=== PATIENT | male | born 1960 | race Caucasian/White ===

== ENCOUNTER 2020-07-21 12:13 | Inpatient (IN) ==
[2020-07-21] MEDS ORDERED: SODIUM CHLORIDE 0.9% 500 ML IV SCH (12:30)
[2020-07-21 13:03] LABS: Basophils # (auto) 0.01 K/uL (0-0.2); Basophils % (auto) 0.1 %; Eosinophils # (auto) 0.01 K/uL (0-0.5); Eosinophils % (auto) 0.1 %; Hematocrit (blood only) 43.8 % (42-52); Hemoglobin 15.4 g/dL (14.0-18.0); Immature Granulocytes % (auto) 1.3 %; Lymphocytes # (auto) 1.01 K/uL (1.2-3.4); Lymphocytes % (auto) 13.3 %; Mean Corpuscular Hemoglobin 31.4 pg (25-34); Mean Corpuscular Hgb Conc 35.2 g/dL (32-36); Mean Corpuscular Volume 89.4 fL (80-100); Mean Platelet Volume 10.9 fL (7.4-10.4); Monocytes # (auto) 1.02 K/uL (0.11-0.59); Monocytes % (auto) 13.5 %; Neutrophils # (auto) 5.43 K/uL (1.4-6.5); Neutrophils % (auto) 71.7 %; Platelet Count 281 K/uL (130-400); RDW Coefficient of Variation 13.1 % (11.5-14.5); RDW Standard Deviation 43.1 fL (36.4-46.3); White Blood Count 7.58 K/uL (4.8-10.8)
[2020-07-21 13:12] LABS: INR 1.1 (0.9-1.1); Prothrombin Time 11.6 Seconds (9.0-12.0)
[2020-07-21 13:14] LABS: D Dimer 620 ug/L FEU (0-500)
--- NOTE | 2020-07-21 13:15 | XRay Report ---
XR chest 1V portable CLINICAL HISTORY: Shortness of breath COMPARISON STUDY: No previous studies for comparison. FINDINGS: The heart is mildly enlarged. There is no failure. There are old left-sided rib fractures. There is no pneumothorax. There are nonspecific bilateral nodular opacities, statistically infectious /inflammatory. Clinical and radiographic follow-up is recommended. No pleural effusions are visualize d[ IMPRESSION: Nonspecific ill-defined bilateral nodular opacities, statistically infectious/inflammator y. Clinical and radiographic follow-up is recommended ACT 112: Negative or not required by law. Electronically signed by: Kyle Dye M.D. 07/21/2020 1:14 PM
[2020-07-21 13:25] LABS: Alanine Aminotransferase 45 U/L (12-78); Aspartate Aminotransferase 43 U/L (15-37); BUN Creatinine Ratio 7.7 (10-20); Blood Urea Nitrogen 7 mg/dl (7-18); Calcium 9.1 mg/dl (8.5-10.1); Carbon Dioxide 25 mmol/L (21-32); Chloride 100 mmol/L (98-107); Creatinine Clr Calc Pharmacy 112.2 ml/min; Est GFR (Non-African American) 87.2; Glucose 144 mg/dl (70-99); Lipase 103 U/L (73-393); Magnesium 2.2 mg/dl (1.8-2.4); Potassium 3.3 mmol/L (3.5-5.1); Sodium 136 mmol/L (136-145)
[2020-07-21 13:35] LABS: Albumin Globulin Ratio 0.7 (0.9-2); Alkaline Phosphatase 79 U/L (45-117); Bilirubin,Total 0.9 mg/dl (0.2-1); Globulin 4.6 gm/dl (2.5-4.0); Thyroid Stimulating Hormone 0.805 uIu/ml (0.300-4.500); Total Protein 7.6 gm/dl (6.4-8.2); Troponin I < 0.015 ng/ml (0-0.045)
[2020-07-21] MEDS ORDERED: POTASSIUM CHLORIDE CRTAB 20 MEQ TABCR PO STA (13:42)
[2020-07-21] MEDS ORDERED: POTASSIUM CHLORIDE / WTR 10 MEQ/100 ML PLCT IV ONE (13:42)
--- NOTE | 2020-07-21 13:42 | Emergency Department Note ---
Impression & Plan COVID-19, A-fib, Hypokalemia ED Provider Note Provider: Aleksandar Mcgill MD DATE OF SERVICE:07/21/2020 CHIEF COMPLAINT: Shortness of breath, palpitations HISTORY OF PRESENT ILLNESS: Patient is a 60-year-old gentleman history of palpitations presenting here today via ambulance from home. Patient states he tested positive for Covid on July 09 and has been convalescing at home. Patient states headaches resolved with breathing or less of days has worsened significantly. His is also sick at home. Patient denies chest pain but states he been having palpitations now extremely short of breath. States he has a somewhat productive cough with some brown sputum. Denies significant headache or myalgias at this time. Denies abdominal pain. Patient states he took some Tylenol early this morning. Denies trauma. Denies syncope. Denies pain at this time. Shortness of breath worse with exertion. REVIEW OF SYSTEMS: A total of 10 review of systems was obtained and negative except as stated above in the HPI. PAST MEDICAL HISTORY: As noted above and later states intermittent A. fib MEDICATIONS: Metoprolol patient taking as needed for palpitations SOCIAL HISTORY: Distant former smoker, lives at home with PHYSICAL EXAM: GENERAL: alert and oriented in no acute distress on stretcher Head: normocephalic and atraumatic EYES: No injection, discharge or icterus. NECK: Trachea midline. Supple. LUNGS: Airway patent. Some mild increased work of breathing but not signi ficantly tachypneic. HEART: Irregularly irregular rate and rhythm. No chest wall tenderness ABDOMEN: Soft and non-tender, without guarding or rebound. SKIN: Acyanotic, warm, dry, without rashes EXTREMITIES: Without swelling, tenderness or deformity NEUROLOGICAL: No focal deficits. No aphasia. No facial droop or slurred speech. EK bpm atrial fibrillation with rapid ventricular response and PVCs noted. No acute ST segment elevation is noted. No priors available. Normal QRS duration. CONTINUOUS CARDIAC MONITORING: was ordered and showed a heart rate of 90's bpm in atrial fibrillation predominantly rate controlled Patient's laboratory studies and imaging reviewed. Differential includes Viral syndrome, otitis, pharyngitis, pneumonia, influenza, meningitis, urinary tract infection, sepsis, bacteremia, as well as other pathologies. IMPRESSION/MEDICAL DECISION MAKIN-year-old gentleman to number cautions with a known Covid positive status now with some worsening shortness of breath. Not significantly hypoxic on room air but having work of breathing. D-dimer is positive and will be sent for CT scan of the chest to exclude PE. EKG shows atrial fibrillation on further questioning the patient reports he does have a paroxysmal history of this and is only on aspirin. Will need to be empirically anticoagulated. Patient is predominately rate controlled here not requiring significant rate control medication such as beta-jasmeet or calcium channel jasmeet. Mild hypokalemia is noted. Given an IV potassium supplement as well as oral potassium supplementation. No significant cytosis or anemia likely. No evidence of hepatitis or pancreatitis. TSH within normal limits. Chest x-ray is consistent with nonspecific interstitial changes that coincide with his history of coronavirus infection. Given the A. fib currently that he seems persistently and did give a dose of Lovenox 1mg/kg for AC at this time. CT will evaluate for possible PE but I doubt dissection given his lack of pain at this time. CTA without signs of PE but ground glass findings consistent with COVID. Patient's feeling improved after some IV hydration and slight oxygen therapy here for comfort. Will discuss with the hospitalist further inpatient care at this time. DIAGNOSIS: COVID-19, shortness of breath, atrial fibrillation DISPOSITION: Hospitalist will evaluate Patient was agreeable with this plan. Past Med/Surg History Social History Smoking Status: Former smoker Feels Safe at Home: Yes Allergies Allergies Allergy/AdvReac Type Severity Reaction Status Date / Time No Known Allergies Allergy Unverified 07/21/20 13:04 Home Meds Home Medications Medication Instructions Recorded Confirmed metoprolol succinate 25 mg PO DAILY 07/21/20 07/21/20 Results & Data (ED) Vital Signs Vital Signs - 24 hr 07/21/20 12:22 07/21/20 14:38 Temperature 37.2 C Temperature Source Oral Pulse Rate 92 H Pulse Rate [Left Finger] 92 H Respiratory Rate 18 16 Respiratory Effort / Characteristics Non-Labored Spontaneous Respiratory Depth Normal Respiratory Pattern Regular Blood Pressure 142/86 H Blood Pressure [Left Arm] 111/72 Blood Pressure Mean 104 Blood Pressure Mean [Left Arm] 85 Blood Pressure Position Sitting Pulse Oximetry 93 97 Oxygen Delivery Method Room Air Nasal Cannula Oxygen Flow Rate 2 Sepsis Recent Fever Within 48 Hours Yes Sepsis New/Unexplained Change in Mental Status N/A Sepsis Action Taken by Nursing No Action Required Laboratory Data Result diagrams: 07/21/20 12:45 07/21/20 12:45 Lab Results 07/21/20 07/21/20 07/21/20 Range/Units 12:45 12:45 12:45 WBC 7.58 (4.8-10.8) K/uL RBC 4.90 (4.7-6.1) M/uL Hgb 15.4 (14.0-18.0) g/dL Hct 43.8 (42-52) % MCV 89.4 (80-100) fL MCH 31.4 (25-34) pg MCHC 35.2 (32-36) g/dL RDW Std Deviation 43.1 (36.4-46.3) fL RDW Coeff of Johana 13.1 (11.5-14.5) % Plt Count 281 (130-400) K/uL MPV 10.9 H (7.4-10.4) fL Immature Gran % (Auto) 1.3 % Neut % (Auto) 71.7 % Lymph % (Auto) 13.3 % [place] % (Auto) 13.5 % Eos % (Auto) 0.1 % Baso % (Auto) 0.1 % Neut # (Auto) 5.43 (1.4-6.5) K/uL Lymph # (Auto) 1.01 L (1.2-3.4) K/uL [place] # (Auto) 1.02 H (0.11-0.59) K/uL Eos # (Auto) 0.01 (0-0.5) K/uL Baso # (Auto) 0.01 (0-0.2) K/uL Immature Gran # (Auto) 0.10 H (0.00-0.02) K/uL PT 11.6 (9.0-12.0) Seconds INR 1.1 (0.9-1.1) D-Dimer 620 H* (0-500) ug/L FEU Sodium 136 (136-145) mmol/L Potassium 3.3 L (3.5-5.1) mmol/L Chloride 100 (98-107) mmol/L Carbon Dioxide 25 (21-32) mmol/L Anion Gap 11.0 (3-11) BUN 7 (7-18) mg/dl Creatinine 0.94 (0.6-1.4) mg/dl Est Cr Clr Drug Dosing 112.2 ml/min Est GFR ( Amer) 101.0 Est GFR (Non-Af Amer) 87.2 BUN/Creatinine Ratio 7.7 L (10-20) Glucose 144 H (70-99) mg/dl Lactate (0.4-2.0) mmol/L Calcium 9.1 (8.5-10.1) mg/dl Magnesium 2.2 (1.8-2.4) mg/dl Total Bilirubin 0.9 (0.2-1) mg/dl AST 43 H (15-37) U/L ALT 45 (12-78) U/L Alkaline Phosphatase 79 (45-117) U/L Troponin I < 0.015 (0-0.045) ng/ml Total Protein 7.6 (6.4-8.2) gm/dl Albumin 3.0 L (3.4-5.0) gm/dl Globulin 4.6 H (2.5-4.0) gm/dl Albumin/Globulin Ratio 0.7 L (0.9-2) Lipase 103 (73-393) U/L Procalcitonin (0-0.5) ng/ml TSH 0.805 (0.300-4.500) uIu/ml 07/21/20 07/21/20 Range/Units 12:45 13:05 WBC (4.8-10.8) K/uL RBC (4.7-6.1) M/uL Hgb (14.0-18.0) g/dL Hct (42-52) % MCV (80-100) fL MCH (25-34) pg MCHC (32-36) g/dL RDW Std Deviation (36.4-46.3) fL RDW Coeff of Johana (11.5-14.5) % Plt Count (130-400) K/uL MPV (7.4-10.4) fL Immature Gran % (Auto) % Neut % (Auto) % Lymph % (Auto) % [place] % (Auto) % Eos % (Auto) % Baso % (Auto) % Neut # (Auto) (1.4-6.5) K/uL Lymph # (Auto) (1.2-3.4) K/uL [place] # (Auto) (0.11-0.59) K/uL Eos # (Auto) (0-0.5) K/uL Baso # (Auto) (0-0.2) K/uL Immature Gran # (Auto) (0.00-0.02) K/uL PT (9.0-12.0) Seconds INR (0.9-1.1) D-Dimer (0-500) ug/L FEU Sodium (136-145) mmol/L Potassium (3.5-5.1) mmol/L Chloride (98-107) mmol/L Carbon Dioxide (21-32) mmol/L Anion Gap (3-11) BUN (7-18) mg/dl Creatinine (0.6-1.4) mg/dl Est Cr Clr Drug Dosing ml/min Est GFR ( Amer) Est GFR (Non-Af Amer) BUN/Creatinine Ratio (10-20) Glucose (70-99) mg/dl Lactate 1.6 (0.4-2.0) mmol/L Calcium (8.5-10.1) mg/dl Magnesium (1.8-2.4) mg/dl Total Bilirubin (0.2-1) mg/dl AST (15-37) U/L ALT (12-78) U/L Alkaline Phosphatase (45-117) U/L Troponin I (0-0.045) ng/ml Total Protein (6.4-8.2) gm/dl Albumin (3.4-5.0) gm/dl Globulin (2.5-4.0) gm/dl Albumin/Globulin Ratio (0.9-2) Lipase (73-393) U/L Procalcitonin < 0.05 (0-0.5) ng/ml TSH (0.300-4.500) uIu/ml Administered Medications Discontinued Medications Sodium Chloride (Nss) 500 mls @ 999 mls/hr IV .Q31M BRAD Stop: 07/21/20 13:00 Last Admin: 07/21/20 12:44 Dose: 999 mls/hr Documented by: [id number] Ioversol (Optiray 320 125ml) 120 ml IV ONCE ONE Stop: 07/21/20 14:47 Last Admin: 07/21/20 14:46 Dose: 120 ml Documented by: [id number] Discharge Plan Visit Data Chief Complaint: Shortness of Breath/Dyspnea Stated Complaint: sob/ covid pos. ED Provider: Aleksandar Mcgill Discharge Problem: COVID-19, A-fib, Hypokalemia Forms Stand Alone Forms: [facility] [place] [employer] Prescriptions Prescriptions: No Action metoprolol succinate 25 mg Tablet Extended Release 24 Hr 25 mg PO DAILY RF: 0 Discharge Problem: A-fib Qualifiers: Atrial fibrillation type: unspecified Qualified Code(s): I48.91 - Unspecified atrial fibrillation
[2020-07-21] MEDS ORDERED: ENOXAPARIN 1 MG/KG SQ ONE (13:59)
[2020-07-21] MEDS ORDERED: ENOXAPARIN INJ 120 MG/0.8 ML SYR SQ STA (14:11)
[2020-07-21] MEDS ORDERED: OPTIRAY 320 125ml IV ONE (14:46)
--- NOTE | 2020-07-21 15:01 | CT Scan Report ---
CT ANGIOGRAM OF THE CHEST CLINICAL HISTORY: Shortness of breath. Possible pulmonary embolism. Abnormal chest x-ray,, +COVID,+di elisha COMPARISON STUDY: Chest x-ray dated 07/21/2020 TECHNIQUE: Following the IV administration of 120 mL of Optiray-320, CT angiogram of the thorax was p erformed from the thoracic inlet to the lung bases utilizing the pulmonary embolus protocol. Images a re reviewed in the axial, sagittal, and coronal planes. IV contrast was administered without complica tion. MIP imaging was performed. A dose lowering technique was utilized adhering to the principles o f ALARA. CT DOSE: 681.57 mGy.cm FINDINGS: There are borderline enlarged right hilar lymph nodes. There is no pathologic mediastinal lymphadenop athy. There was no evidence of thoracic aortic dilatation. There were no pulmonary artery filling defects to indicate acute pulmonary embolism. There are trace bilateral pleural effusions There are multifocal bilateral groundglass pulmonary opacities with a peripheral distribution. The fi ndings are consistent with a bilateral pneumonia. IMPRESSION: 1. No evidence of acute pulmonary embolism 2. Multifocal bilateral groundglass pulmonary opacities with a peripheral distribution. The findings are indicative of a bilateral pneumonitis, likely viral. ACT 112: Negative or not required by law. Electronically signed by: Kyle Dye M.D. 07/21/2020 3:00 PM
[2020-07-21 15:31] LABS: Appearance Urine Clear (Clear); Bilirubin Urine Negative (Negative); Blood Urine Negative (Negative); Color Urine Yellow; Glucose Urine UA Negative (Negative); Ketones Urine 2+ (Negative); Leukocyte Esterase Urine Negative (Negative); Nitrite Urine Negative (Negative); Protein Urine Negative (Negative); Specific Gravity Urine 1.022 (1.000-1.030); Urobilinogen Urine Negative (Negative)
--- NOTE | 2020-07-21 16:28 | History & Physical Report ---
Date of Service July 21, 2020 Assessment & Plan (1) SOB (shortness of breath) on exertion: (2) COVID-19: Present on admission with worsening SOB with minimal exertion associated with palpitation Was testing positive for COVID 19 on 07/09, but SOB worsening in the last few days CTA chest showed no evidence of acute pulmonary embolism. Multifocal bilateral groundglass pulmonary opacities with a peripheral distribution. Case discussed with pulmonology Dr. Brice, no indication for Remdesivir since symptoms has been going for more than [address] Brice agreed to start on dexamethasone 6mg daily since SOB worsening with oxygen sat dropped in the 93 and required 2L NC of oxygen on admission CT reviewed with storage garage attendant and suggested the CT finding is due to COVID 19 and recommended to hold on antibiotic Procalcitonin normal and no leukocytosis, but if pt develops any fever will start on antibiotic Continue oxygen supplement consider official pulm consult if symptoms worsening Blood cx collected in the ER pending Continue isolation (3) A-fib: Feels SOB associated with palpitation History of paroxysmal A. fib EKG on admission showed A. fib with HR 110 Pt is on Metoprolol but only takes metoprolol when he has symptom Will resume metoprolol 25mg succinate Take aspirin on and off Will get an echo in am Received Lovenox therapeutic in the ER, Will continue for now Cardiology consult Continue monitor closely (4) Hypokalemia: Mostly related to poor intake Potassium on admission 3.3 K replaced Will monitor BMP DM type 2 last Hba1c 6.8 on 08/02 Not on any diabetic medication Will check Hba1c Will start on novolog sliding scale during the hospital course Continue monitor BS while on steroid Elevated Ddimer Mostly due to COVID 19 CTA chest showed no evidence for PE DVT px on Lovenox therapeutic dose for P. Afib Code status full code Disposition Will discharge once medically stable History of Present Illness Chief Complaint: Worsening SOB Primary Care Provider: Moustapha Wall MD male60 years old type 2 diabetes with past medical history of paroxysmal A. fib, with worsening shortness of breath presented to the ER. Patient said on July 10 he was tested positive for Covid 19. He said his shortness of breath has been getting worse because with little exertion he runs out of breath and gets tired. He said that he has been having productive cough with brown sputum. He said last week he had diarrhea,and fever that resolved now. He said that he vomited once last week. He said he has not been eating in the past 2 weeks and felt very weak. Today his breathing felt worse associated with palpitation. Last time he was in A. fib was about 5 months ago. He is on metoprolol but only takes it unless he has symptoms. He takes baby aspirin on and off. Currently he said he felt much better with the oxygen supplement. Denies any chest pain, palpitation, dizziness, nausea. Lab done in the ER showed elevated of D-dimer. CTA chest was negative for PE. Lovenox was given for the A. fib. Allergies Allergy/AdvReac Type Severity Reaction Status Date / Time No Known Allergies Allergy Unverified 07/21/20 13:04 Home Medications Home Medications Medication Instructions Recorded Confirmed Type aspirin 81 mg PO DAILY 07/21/20 07/21/20 History metoprolol succinate 25 mg PO DAILY 07/21/20 07/21/20 History Past Med/Surg History Social History Smoking Status: Former smoker Second Hand Exposure: No; Do You Dip or Chew Tobacco: No; Tobacco Cessation Education Requested by Patient: No Hx Alcohol Use: Yes Alcohol type: beer and hard liquor Hx Substance Use: No Preferred Language: Lithuanian 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 Beliefs That Will Affect Care: None Current Living Situation: Spouse Other Information That Helps Us Care for You: No Feels Safe at Home: Yes Safety Concerns: Feels Safe At This Time Assistive Devices: Glasses Review of Systems Review of Systems: All systems reviewed & are unremarkable except as noted in HPI & below Physical Exam Physical Exam: General- No acute distress Head- atraumatic Eyes- PERRL, EOMI, ENT- oropharynx clear Neck- supple, no JVD Lungs- No wheezing or crackles Heart- irregular rhythm; no murmur Abdomen- normal bowel sounds, soft, nontender Extremities- no calf tenderness Neuro- alert, oriented x 3; PERRL, EOMI; no facial palsy; no dysarthria Skin- warm & dry Results & Data Results & Data ([facility]) Vital Signs (Past 12 Hours) Vital Signs Temp Pulse Pulse Resp BP BP Pulse Ox 07/21/20 16:11 89 16 114/69 96 07/21/20 14:38 92 H 16 111/72 97 07/21/20 12:22 37.2 C 92 H 18 142/[address] ANGIOGRAM OF THE CHEST CLINICAL HISTORY: Shortness of breath. Possible pulmonary embolism. Abnormal chest x-ray,, +COVID,+dimer COMPARISON STUDY: Chest x-ray dated 07/21/2020 TECHNIQUE: Following the IV administration of 120 mL of Optiray-320, CT angiogram of the thorax was performed from the thoracic inlet to the lung bases utilizing the pulmonary embolus protocol. Images are reviewed in the axial, sagittal, and coronal planes. IV contrast was administered without complication. MIP imaging was performed. A dose lowering technique was utilized adhering to the principles of ALARA. CT DOSE: 681.57 mGy.cm FINDINGS: There are borderline enlarged right hilar lymph nodes. There is no pathologic mediastinal lymphadenopathy. There was no evidence of thoracic aortic dilatation. There were no pulmonary artery filling defects to indicate acute pulmonary embolism. There are trace bilateral pleural effusions There are multifocal bilateral groundglass pulmonary opacities with a peripheral distribution. The findings are consistent with a bilateral pneumonia. IMPRESSION: 1. No evidence of acute pulmonary embolism 2. Multifocal bilateral groundglass pulmonary opacities with a peripheral distribution. The findings are indicative of a bilateral pneumonitis, likely viral. ACT 112: Negative or not required by law. Electronically signed by: Kyle Dye M.D. 07/21/2020 3:00 PM Dictated: 07/21/201453Transcribed: 07/21/201453 [facility], [id number] XRay Report Patient: YVETTE YEPEZ Date: 07/21/20#: [id number]: [address]Acct ID:[id number]: Date: 1960[facility] [address] Zip: [place],Age: 60Location: EDSex: MRoom/Bed:Att Phy:Diagnosis: sob/ covid pos.Veronica P hy: PCP,NOService Date: 07/21/20Fam Phy:Interpreting Phy: Kyle Dye MDAdmit Phy: Ordering Phy: Aleksandar Mcgill M.D. cc: ~ XR chest 1V portable CLINICAL HISTORY: Shortness of breath COMPARISON STUDY: No previous studies for comparison. FINDINGS: The heart is mildly enlarged. There is no failure. There are old left- sided rib fractures. There is no pneumothorax. There are nonspecific bilateral nodular opacities, statistically infectious/inflammatory. Clinical and radiographic follow-up is recommended. No pleural effusions are visualized[ IMPRESSION: Nonspecific ill-defined bilateral nodular opacities, statistically infectious/inflammatory. Clinical and radiographic follow-up is recommended ACT 112: Negative or not required by law. Electronically signed by: Kyle Dye M.D. 07/21/2020 1:14 PM Dictated: 07/21/20 1312Transcribed: 07/21/20 1312 (1) A-fib Atrial fibrillation type: unspecified Qualified Code(s): I48.91 - Unspecified atrial fibrillation
[2020-07-21 16:53] LABS: NT Pro B Type Natriuretic Pept 893 pg/ml (0-900)
[2020-07-21] MEDS ORDERED: IPRATROPIUM BROMIDE/ALBUTEROL respimat INH INH PRN (17:11)
[2020-07-21] MEDS ORDERED: GLUCOSE 10 TABS/TUBE PO PRN (18:00)
[2020-07-21] MEDS ORDERED: ACETAMINOPHEN 325 MG TAB PO PRN (18:00)
[2020-07-21] MEDS ORDERED: CARBOHYDRATES FOR HYPOGLYCEMIA PO PRN (18:00)
[2020-07-21] MEDS ORDERED: GLUCAGON FOR INJ 1 MG VIAL SQ PRN (18:00)
[2020-07-21] MEDS ORDERED: GLUCOSE 40% GEL 15 GM TUBE PO PRN (18:00)
[2020-07-21] MEDS ORDERED: DEXTROSE 50% 50 ML SYRINGE IV PRN (18:00)
[2020-07-21] MEDS ORDERED: ALBUTEROL HFA 8 GM INHALER INH PRN (18:34)
[2020-07-21] MEDS ORDERED: IPRATROPIUM BROMIDE HFA INHALER INH PRN (19:00)
[2020-07-21] MEDS ORDERED: ALBUTEROL HFA 8 GM INHALER INH SCH (19:00)
[2020-07-21] MEDS: dexAMETHasone 4 MG TAB PO SCH (19:27)
[2020-07-21] MEDS: METOPROLOL SUCC 25MG EXT REL TAB PO SCH (19:27)
[2020-07-21] MEDS: guaiFENesin 600 MG TABCR PO SCH (19:27)
[2020-07-21] MEDS: INSULIN ASPART 100 UNITS/ML 3 ML PEN SC SCH (19:55)
[2020-07-21] MEDS ORDERED: ENOXAPARIN 1 MG/KG SC SCH (21:00)
[2020-07-21] MEDS ORDERED: METOPROLOL TARTRATE 1 MG/ML VIAL IV PRN (22:25)
[2020-07-22] MEDS: ENOXAPARIN INJ 120 MG/0.8 ML SYR SQ SCH ×2 (05:36→18:00)
[2020-07-22 05:48] LABS: Hematocrit (blood only) 47.5 % (42-52); Mean Corpuscular Hemoglobin 30.7 pg (25-34); Mean Corpuscular Hgb Conc 33.7 g/dL (32-36); Platelet Count 300 K/uL (130-400); RDW Coefficient of Variation 13.4 % (11.5-14.5); RDW Standard Deviation 44.5 fL (36.4-46.3); Red Blood Count 5.22 M/uL (4.7-6.1); White Blood Count 4.71 K/uL (4.8-10.8)
[2020-07-22 06:15] LABS: Albumin Level 2.8 gm/dl (3.4-5.0); BUN Creatinine Ratio 12.1 (10-20); Calcium 8.6 mg/dl (8.5-10.1); Creatinine Clr Calc Pharmacy 109.8 ml/min; Est GFR (African American) 98.5; Potassium 3.8 mmol/L (3.5-5.1)
[2020-07-22 06:21] LABS: Albumin Globulin Ratio 0.6 (0.9-2); Bilirubin,Total 0.9 mg/dl (0.2-1); C Reactive Protein 7.89 mg/dl (0-0.29); Ferritin 1480.3 ng/ml (8-388); Globulin 4.6 gm/dl (2.5-4.0); Total Protein 7.4 gm/dl (6.4-8.2)
[2020-07-22 06:35] LABS: D Dimer 430 ug/L FEU (0-500)
[2020-07-22] MEDS: dexAMETHasone 4 MG TAB PO SCH (09:15)
[2020-07-22] MEDS: guaiFENesin 600 MG TABCR PO SCH ×2 (09:15→20:48)
[2020-07-22] MEDS: METOPROLOL SUCC 25MG EXT REL TAB PO SCH (09:15)
[2020-07-22] MEDS: INSULIN ASPART 100 UNITS/ML 3 ML PEN SC SCH ×4 (09:27→20:39)
--- NOTE | 2020-07-22 10:34 | Cardiology Consultation ---
Date of Consultation July 22, 2020 Assessment & Plan (1) COVID-19: (2) A-fib: As mentioned below, the patient converted spontaneously to normal sinus rhythm this morning. At this point I would continue metoprolol and anticoagulation with Lovenox. Echocardiogram was ordered and will be completed this morning. History of Present Illness Attending Physician: Deepti Chandler DO History of Present Illness This is a 60-year-old male patient admitted with COVID-19. This is a chart review consult to limit exposure. The patient has a history of paroxysmal atr ial fibrillation treated with as needed metoprolol and aspirin. Upon admission he was admitted with atrial fibrillation and this morning converted spontaneously to normal sinus rhythm. Allergies Allergy/AdvReac Type Severity Reaction Status Date / Time No Known Allergies Allergy Unverified 07/21/20 13:04 Home Medications Home Medications Medication Instructions Recorded Confirmed Type aspirin 81 mg PO DAILY 07/21/20 07/21/20 History metoprolol succinate 25 mg PO DAILY 07/21/20 07/21/20 History Patient History Social History Smoking Status: Former smoker Second Hand Exposure: No; Do You Dip or Chew Tobacco: No; Tobacco Cessation Education Requested by Patient: No Hx Alcohol Use: Yes Alcohol type: beer and hard liquor Hx Substance Use: No Preferred Language: Stateless Dog Boarder Required: No Beliefs That Will Affect Care: None Current Living Situation: Spouse Other Information That Helps Us Care for You: No Feels Safe at Home: Yes Safety Concerns: Feels Safe At This Time Assistive Devices: Oxygen - Continuous Review of Systems Review of Systems: All systems reviewed & are unremarkable except as noted in HPI & below Nothing additional to add Physical Exam Physical Exam: Not completed as the patient is Covid 19+ Results & Data ([facility]) Vital Signs (Past 12 Hours) Vital Signs Temp Pulse Pulse Resp BP Pulse Ox 07/22/20 08:19 36.5 C 88 20 130/74 95 07/22/20 07:42 96 H 07/22/20 03:30 36.8 C 87 18 137/79 95 07/22/20 00:23 37.1 C 90 18 123/73 94 Laboratory Results Laboratory Results - last 24 hr 07/21/20 07/21/20 07/21/20 12:45 12:45 12:45 WBC 7.58 RBC 4.90 Hgb 15.4 Hct 43.8 MCV 89.4 MCH 31.4 MCHC 35.2 RDW Std Deviation 43.1 RDW Coeff of Johana 13.1 Plt Count 281 MPV 10.9 H Immature Gran % (Auto) 1.3 Neut % (Auto) 71.7 Lymph % (Auto) 13.3 [place] % (Auto) 13.5 Eos % (Auto) 0.1 Baso % (Auto) 0.1 Neut # (Auto) 5.43 Lymph # (Auto) 1.01 L [place] # (Auto) 1.02 H Eos # (Auto) 0.01 Baso # (Auto) 0.01 Immature Gran # (Auto) 0.10 H ESR PT 11.6 INR 1.1 D-Dimer 620 H* Sodium 136 Potassium 3.3 L Chloride 100 Carbon Dioxide 25 Anion Gap 11.0 BUN 7 Creatinine 0.94 Est Cr Clr Drug Dosing 112.2 Est GFR ( Amer) 101.0 Est GFR (Non-Af Amer) 87.2 BUN/Creatinine Ratio 7.7 L Glucose 144 H POC Glucose Estimat Average Glucose Hemoglobin A1c Lactate Calcium 9.1 Magnesium 2.2 Ferritin Total Bilirubin 0.9 AST 43 H ALT 45 Alkaline Phosphatase 79 Troponin I < 0.015 C-Reactive Protein NT-Pro-B Natriuret Pep 893 Total Protein 7.6 Albumin 3.0 L Globulin 4.6 H Albumin/Globulin Ratio 0.7 L Lipase 103 Procalcitonin TSH 0.805 Urine Color Urine Appearance Urine pH Ur Specific [place] Urine Protein Urine Glucose (UA) Urine Ketones Urine Blood Urine Nitrite Urine Bilirubin Urine Urobilinogen Ur Leukocyte Esterase 07/21/20 07/21/20 07/21/20 12:45 13:05 15:00 WBC RBC Hgb Hct MCV MCH MCHC RDW Std Deviation RDW Coeff of [place]ana Plt Count MPV Immature Gran % (Auto) Neut % (Auto) Lymph % (Auto) [place] % (Auto) Eos % (Auto) Baso % (Auto) Neut # (Auto) Lymph # (Auto) [place] # (Auto) Eos # (Auto) Baso # (Auto) Immature Gran # (Auto) ESR PT INR D-Dimer Sodium Potassium Chloride Carbon Dioxide Anion Gap BUN Creatinine Est Cr Clr Drug Dosing Est GFR ( Amer) Est GFR (Non-Af Amer) BUN/Creatinine Ratio Glucose POC Glucose Estimat Average Glucose Hemoglobin A1c Lactate 1.6 Calcium Magnesium Ferritin Total Bilirubin AST ALT Alkaline Phosphatase Troponin I C-Reactive Protein NT-Pro-B Natriuret Pep Total Protein Albumin Globulin Albumin/Globulin Ratio Lipase Procalcitonin < 0.05 TSH Urine Color Yellow Urine Appearance Clear Urine pH 7.0 Ur Specific [place] 1.022 Urine Protein Negative Urine Glucose (UA) Negative Urine Ketones 2+ H Urine Blood Negative Urine Nitrite Negative Urine Bilirubin Negative Urine Urobilinogen Negative Ur Leukocyte Esterase Negative 07/21/20 07/22/20 07/22/20 19:23 05:07 05:07 WBC RBC Hgb Hct MCV MCH MCHC RDW Std Deviation RDW Coeff of Johana Plt Count MPV Immature Gran % (Auto) Neut % (Auto) Lymph % (Auto) [place] % (Auto) Eos % (Auto) Baso % (Auto) Neut # (Auto) Lymph # (Auto) [place] # (Auto) Eos # (Auto) Baso # (Auto) Immature Gran # (Auto) ESR PT INR D-Dimer 430 Sodium 138 Potassium 3.8 D Chloride 104 Carbon Dioxide 26 Anion Gap 8.0 BUN 12 D Creatinine 0.96 Est Cr Clr Drug Dosing 109.8 Est GFR ( Amer) 98.5 Est GFR (Non-Af Amer) 85.0 BUN/Creatinine Ratio 12.1 Glucose 200 H POC Glucose 157 H Estimat Average Glucose Hemoglobin A1c Lactate Calcium 8.6 Magnesium Ferritin 1480.3 H Total Bilirubin 0.9 AST 30 ALT 44 Alkaline Phosphatase 80 Troponin I C-Reactive Protein 7.89 H NT-Pro-B Natriuret Pep Total Protein 7.4 Albumin 2.8 L Globulin 4.6 H Albumin/Globulin Ratio 0.6 L Lipase Procalcitonin TSH Urine Color Urine Appearance Urine pH Ur Specific [place] Urine Protein Urine Glucose (UA) Urine Ketones Urine Blood Urine Nitrite Urine Bilirubin Urine Urobilinogen Ur Leukocyte Esterase 07/22/20 07/22/20 07/22/20 05:07 05:07 05:07 WBC 4.71 L RBC 5.22 Hgb 16.0 Hct 47.5 MCV 91.0 MCH 30.7 MCHC 33.7 RDW Std Deviation 44.5 RDW Coeff of [place] 13.4 Plt Count 300 MPV 11.0 H Immature Gran % (Auto) Neut % (Auto) Lymph % (Auto) [place] % (Auto) Eos % (Auto) Baso % (Auto) Neut # (Auto) Lymph # (Auto) [place] # (Auto) Eos # (Auto) Baso # (Auto) Immature Gran # (Auto) ESR 61 H PT INR D-Dimer Sodium Potassium Chloride Carbon Dioxide Anion Gap BUN Creatinine Est Cr Clr Drug Dosing Est GFR ( Amer) Est GFR (Non-Af Amer) BUN/Creatinine Ratio Glucose POC Glucose Estimat Average Glucose Pending Hemoglobin A1c Pending Lactate Calcium Magnesium Ferritin Total Bilirubin AST ALT Alkaline Phosphatase Troponin I C-Reactive Protein NT-Pro-B Natriuret Pep Total Protein Albumin Globulin Albumin/Globulin Ratio Lipase Procalcitonin TSH Urine Color Urine Appearance Urine pH Ur Specific [place] Urine Protein Urine Glucose (UA) Urine Ketones Urine Blood Urine Nitrite Urine Bilirubin Urine Urobilinogen Ur Leukocyte Esterase 07/22/20 08:16 WBC RBC Hgb Hct MCV MCH MCHC RDW Std Deviation RDW Coeff of Johana Plt Count MPV Immature Gran % (Auto) Neut % (Auto) Lymph % (Auto) [place] % (Auto) Eos % (Auto) Baso % (Auto) Neut # (Auto) Lymph # (Auto) [place] # (Auto) Eos # (Auto) Baso # (Auto) Immature Gran # (Auto) ESR PT INR D-Dimer Sodium Potassium Chloride Carbon Dioxide Anion Gap BUN Creatinine Est Cr Clr Drug Dosing Est GFR ( Amer) Est GFR (Non-Af Amer) BUN/Creatinine Ratio Glucose POC Glucose 194 H Estimat Average Glucose Hemoglobin A1c Lactate Calcium Magnesium Ferritin Total Bilirubin AST ALT Alkaline Phosphatase Troponin I C-Reactive Protein NT-Pro-B Natriuret Pep Total Protein Albumin Globulin Albumin/Globulin Ratio Lipase Procalcitonin TSH Urine Color Urine Appearance Urine pH Ur Specific [place] Urine Protein Urine Glucose (UA) Urine Ketones Urine Blood Urine Nitrite Urine Bilirubin Urine Urobilinogen Ur Leukocyte Esterase Medications Administered Current Inpatient Medications Acetaminophen (Acetaminophen 325 Mg Tab) 650 mg PO Q6H PRN PRN Reason: pain/fever Stop: 08/20/20 17:59 Albuterol (Albuterol Hfa 8 Gm Inhaler) 1 puffs INH QIDR PRN PRN Reason: shortness of breath Stop: 08/20/20 18:33 Last Admin: 07/21/20 19:51 Dose: 1 puffs Documented by: Dexamethasone (Dexamethasone 4 Mg Tab) 6 mg PO DAILY BRAD Stop: 08/20/20 18:29 Last Admin: 07/22/20 09:15 Dose: 6 mg Documented by: Dextrose (Dextrose 50% 50 Ml Syringe) 25 - 50 ml IV UD PRN; Protocol PRN Reason: Hypoglycemia Protocol Stop: 08/20/20 17:59 Enoxaparin Sodium (Enoxaparin Inj 120 Mg/0.8 Ml Syr) 120 mg SQ Q12H BRAD Stop: 08/21/20 04:59 Last Admin: 07/22/20 05:36 Dose: 120 mg Documented by: Glucagon (Glucagon For Inj 1 Mg Vial) 1 mg SQ UD PRN; Protocol PRN Reason: Hypoglycemia Protocol Stop: 08/20/20 17:59 Glucose (Glucose 40% Gel 15 Gm Tube) 15 - 30 gm PO UD PRN; Protocol PRN Reason: Hypoglycemia Protocol Stop: 08/20/20 17:59 Glucose (Glucose 10 Tabs/Tube) 4 - 8 tabs PO UD PRN; Protocol PRN Reason: Hypoglycemia Protocol Stop: 08/20/20 17:59 Guaifenesin (Guaifenesin 600 Mg Tabcr) 600 mg PO Q12 BRAD Stop: 08/20/20 20:59 Last Admin: 07/22/20 09:15 Dose: 600 mg Documented by: Influenza Virus Vaccine Quadrival (Influenza Virus Quad Vaccine 0.5 Ml Syr) 0.5 ml IM .ONCE ONE Stop: 07/22/20 16:01 Insulin Aspart (Insulin Aspart 100 Units/Ml 3 Ml Pen) 0 units SC ACHS BRAD Stop: 08/20/20 20:59 Last Admin: 07/22/20 09:27 Dose: 5 units Documented by: Ipratropium [place] (Ipratropium [place] Hfa Inhaler) 1 puffs INH QIDR PRN PRN Reason: shortness of breath Stop: 08/20/20 18:59 Last Admin: 07/21/20 19:52 Dose: 1 puffs Documented by: Metoprolol Succinate (Metoprolol Succ 25mg Ext Rel Tab) 25 mg PO DAILY BRAD Stop: 08/20/20 17:59 Last Admin: 07/22/20 09:15 Dose: 25 mg Documented by: Metoprolol Tartrate (Metoprolol Tartrate 1 Mg/Ml Vial) 2.5 mg IV Q6 PRN PRN Reason: for HR above 120 Stop: 08/21/20 00:00 Miscellaneous (Carbohydrates For Hypoglycemia ) 15 - 30 gm PO UD PRN PRN Reason: Hypoglycemia Protocol Stop: 08/20/20 17:59 (1) A-fib Atrial fibrillation type: unspecified Qualified Code(s): I48.91 - Unspecified atrial fibrillation
--- NOTE | 2020-07-22 12:26 | Electrocardiogram Report ---
Test Reason : Blood Pressure : / mmHG Vent. Rate : 110 BPM Atrial Rate : 119 BPM P-R Int : 000 ms QRS Dur : 084 ms QT Int : 390 ms P-R-T Axes : 000 -05 253 degrees QTc Int : 527 ms Poor data quality, interpretation may be adversely affected Atrial fibrillation with rapid ventricular response with premature ventricular or aberrantly conducte d complexes Nonspecific T wave abnormality consider lateral ischemia Abnormal ECG No previous ECGs available Confirmed by Roland Alegria ([id number]) on 07/22/2020 12:25:51 PM Referred By: REFERRED SELF Confirmed By:Roland Alegria
--- NOTE | 2020-07-22 12:50 | Hospitalist Progress Note ---
Date of Service July 22, 2020 Assessment & Plan (1) COVID-19: Feels somewhat improved today but still short of breath and requiring oxygen Feels feverish with chills Starting remdesivir today--elevated ESR/CRP/ferritin--ordered convalescent plasma Cont daily dexamethasone and supportive care efforts as needed. (2) Paroxysmal atrial fibrillation: has a long history of afib in the past that is intermittent. Uses baby aspirin daily but not on any blood thinners in the past. Now on full dose lovenox. Has seen cardiology and was placed on Toprol, but uses half daily as this causes fatigue. Discussed the possibility of changing strategies in the hospital with current fiberglass technician. For now, the focus is the treatment of his hypoxia 2/2 covid-19 as he has already converted to sinus rhythm. (3) Impaired glucose metabolism: A1C pending but random glucose already >200. On carb coverage and correction factor with Novolog while on dexamethasone. Cont to monitor closely. No basal ordered just yet to avoid unnecessary hypoglycemia. (4) DVT prophylaxis: Lovenox full dose Full Code Dispo-cont med tele. Plan for home when off oxygen. Deepti Chandler DO [facility] Hospitalist Admission and Anticipated Discharge Date Admission Date: July 21, 2020 Subjective reports coughing, recent fevers and chills with worsening SOB on oxygen the patient has been formally diagnosed for at least 1 week and had diarrhea he reports was severe, that he feels has resolved at this point he is tolerating PO he reports a long h/o afib and intolerance of betablockers for severe fatigue. he reports that he has had increased frequency of afib episodes in the last 3-4 years. Review of Systems Review of Systems: All systems reviewed & are unremarkable except as noted in Subjective Physical Exam Physical Exam: CONSTITUTIONAL: WNWD, vitals as above, generally well-appe aring EYES: normal conjunctivae, no scleral icterus ENT: external ear and nose normal, oropharynx clear, MMM RESPIRATORY: clear to auscultation bilaterally, no crackles, rales or wheezes, normal respiratory effort CARDIOVASCULAR: regular rate and rhythm, S1 and 2 heard without murmurs, gallops or rubs, no JVD, no peripheral edema GASTROINTESTINAL: soft, nontender, no guarding, nondistended. MUSCULOSKELETAL: strength 5/5 throughout, head is normocephalic and atraumatic SKIN: warm and dry NEUROLOGIC: CN 2-12 grossly intact, normal cognition, normal speech, no tremor. No gross focal deficits. PSYCHIATRIC: alert cooperative and oriented to person, place and time. Results & Data Results & Data ([facility]) Vital Signs (Past 12 Hours) Vital Signs Temp Pulse Pulse Resp BP Pulse Ox 07/22/20 08:19 36.5 C 88 20 130/74 95 07/22/20 07:42 96 H 07/22/20 03:30 36.8 C 87 18 137/79 95 Laboratory Results Short CBC 07/21/20 07/22/20 Range/Units 12:45 05:07 WBC 7.58 4.71 L (4.8-10.8) K/uL Hgb 15.4 16.0 (14.0-18.0) g/dL Hct 43.8 47.5 (42-52) % Plt Count 281 300 (130-400) K/uL BMP 07/21/20 07/22/20 12:45 05:07 Sodium 136 138 Potassium 3.3 L 3.8 D Chloride 100 104 Carbon Dioxide 25 26 BUN 7 12 D Creatinine 0.94 0.96 Glucose 144 H 200 H Calcium 9.1 8.6 Cardiac Enzymes 07/21/20 Range/Units 12:45 Troponin I < 0.015 (0-0.045) ng/ml Liver Function 07/21/20 07/22/20 Range/Units 12:45 05:07 Total Bilirubin 0.9 0.9 (0.2-1) mg/dl AST 43 H 30 (15-37) U/L ALT 45 44 (12-78) U/L Alkaline Phosphatase 79 80 (45-117) U/L Albumin 3.0 L 2.8 L (3.4-5.0) gm/dl Urine 07/21/20 Range/Units 15:00 Urine Color Yellow Urine Appearance Clear (Clear) Urine pH 7.0 (4.5-7.5) Ur Specific [place] 1.022 (1.000-1.030) Urine Protein Negative (Negative) Urine Glucose (UA) Negative (Negative) Diagnostic Findings CT ANGIOGRAM OF THE CHEST CLINICAL HISTORY: Shortness of breath. Possible pulmonary embolism. Abnormal chest x-ray,, +COVID,+dimer COMPARISON STUDY: Chest x-ray dated 07/21/2020 TECHNIQUE: Following the IV administration of 120 mL of Optiray-320, CT angiogram of the thorax was performed from the thoracic inlet to the lung bases utilizing the pulmonary embolus protocol. Images are reviewed in the axial, sagittal, and coronal planes. IV contrast was administered without complication. MIP imaging was performed. A dose lowering technique was utilized adhering to the principles of ALARA. CT DOSE: 681.57 mGy.cm FINDINGS: There are borderline enlarged right hilar lymph nodes. There is no pathologic mediastinal lymphadenopathy. There was no evidence of thoracic aortic dilatation. There were no pulmonary artery filling defects to indicate acute pulmonary embolism. There are trace bilateral pleural effusions There are multifocal bilateral groundglass pulmonary opacities with a peripheral distribution. The findings are consistent with a bilateral pneumonia. IMPRESSION: 1. No evidence of acute pulmonary embolism 2. Multifocal bilateral groundglass pulmonary opacities with a peripheral distribution. The findings are indicative of a bilateral pneumonitis, likely viral. ACT 112: Negative or not required by law. Electronically signed by: Kyle Dye M.D. 07/21/2020 3:00 PM Dictated: 07/21/20 1454Transcribed: 07/21/20 1454 Medications Administered Current Inpatient Medications Acetaminophen (Acetaminophen 325 Mg Tab) 650 mg PO Q6H PRN PRN Reason: pain/fever Stop: 08/20/20 17:59 Albuterol (Albuterol Hfa 8 Gm Inhaler) 1 puffs INH QIDR PRN PRN Reason: shortness of breath Stop: 08/20/20 18:33 Last Admin: 07/21/20 19:51 Dose: 1 puffs Documented by: Dexamethasone (Dexamethasone 4 Mg Tab) 6 mg PO DAILY BRAD Stop: 08/20/20 18:29 Last Admin: 07/22/20 09:15 Dose: 6 mg Documented by: Dextrose (Dextrose 50% 50 Ml Syringe) 25 - 50 ml IV UD PRN; Protocol PRN Reason: Hypoglycemia Protocol Stop: 08/20/20 17:59 Enoxaparin Sodium (Enoxaparin Inj 120 Mg/0.8 Ml Syr) 120 mg SQ Q12H BRAD Stop: 08/21/20 04:59 Last Admin: 07/22/20 05:36 Dose: 120 mg Documented by: Glucagon (Glucagon For Inj 1 Mg Vial) 1 mg SQ UD PRN; Protocol PRN Reason: Hypoglycemia Protocol Stop: 08/20/20 17:59 Glucose (Glucose 40% Gel 15 Gm Tube) 15 - 30 gm PO UD PRN; Protocol PRN Reason: Hypoglycemia Protocol Stop: 08/20/20 17:59 Glucose (Glucose 10 Tabs/Tube) 4 - 8 tabs PO UD PRN; Protocol PRN Reason: Hypoglycemia Protocol Stop: 08/20/20 17:59 Guaifenesin (Guaifenesin 600 Mg Tabcr) 600 mg PO Q12 BRAD Stop: 08/20/20 20:59 Last Admin: 07/22/20 09:15 Dose: 600 mg Documented by: Influenza Virus Vaccine Quadrival (Influenza Virus Quad Vaccine 0.5 Ml Syr) 0.5 ml IM .ONCE ONE Stop: 07/22/20 16:01 Insulin Aspart (Insulin Aspart 100 Units/Ml 3 Ml Pen) 0 units SC ACHS BRAD Stop: 08/20/20 20:59 Last Admin: 07/22/20 09:27 Dose: 5 units Documented by: Ipratropium [place] (Ipratropium [place] Hfa Inhaler) 1 puffs INH QIDR PRN PRN Reason: shortness of breath Stop: 08/20/20 18:59 Last Admin: 07/21/20 19:52 Dose: 1 puffs Documented by: Metoprolol Succinate (Metoprolol Succ 25mg Ext Rel Tab) 25 mg PO DAILY BRAD Stop: 08/20/20 17:59 Last Admin: 07/22/20 09:15 Dose: 25 mg Documented by: Metoprolol Tartrate (Metoprolol Tartrate 1 Mg/Ml Vial) 2.5 mg IV Q6 PRN PRN Reason: for HR above 120 Stop: 08/21/20 00:00 Miscellaneous (Carbohydrates For Hypoglycemia ) 15 - 30 gm PO UD PRN PRN Reason: Hypoglycemia Protocol Stop: 08/20/20 17:59
[2020-07-22] MEDS ORDERED: REMDESIVIR 200 MG in SODIUM CHLORIDE 0.9% 210 ML IV ONE (15:00)
[2020-07-22] MEDS ORDERED: INFLUENZA VIRUS QUAD VACCINE 0.5 ML SYR IM ONE (16:00)
[2020-07-22] MEDS ORDERED: INFLUENZA ADMINISTRATION CHARGE ONE (16:00)
[2020-07-22] MEDS ORDERED: diphenhydrAMINE Capsule 25 MG CAP PO SCH (17:00)
[2020-07-22] MEDS ORDERED: SODIUM CHLORIDE 0.9% 10ML FLUSH IV SCH (17:00)
[2020-07-22] MEDS ORDERED: ACETAMINOPHEN 325 MG TAB PO SCH (17:00)
[2020-07-23] MEDS ORDERED: POTASSIUM CHLORIDE CRTAB 20 MEQ TABCR PO STA (05:17)
[2020-07-23 06:24] LABS: Estimated Average Glucose 160 mg/dl; Hemoglobin A1C 7.2 % (4.5-5.6)
[2020-07-23 06:32] LABS: BUN Creatinine Ratio 18.1 (10-20); Calcium 8.8 mg/dl (8.5-10.1); Creatinine Clr Calc Pharmacy 107.2 ml/min; Est GFR (African American) 96.1; Est GFR (Non-African American) 82.9; Potassium 3.5 mmol/L (3.5-5.1)
[2020-07-23] MEDS: METOPROLOL SUCC 25MG EXT REL TAB PO SCH (06:35)
[2020-07-23 06:36] LABS: C Reactive Protein 4.67 mg/dl (0-0.29); Ferritin 1152.4 ng/ml (8-388)
[2020-07-23] MEDS: ENOXAPARIN INJ 120 MG/0.8 ML SYR SQ SCH ×2 (06:37→17:49)
[2020-07-23 06:43] LABS: Hematocrit (blood only) 43.4 % (42-52); Hemoglobin 14.8 g/dL (14.0-18.0); Mean Corpuscular Hemoglobin 30.6 pg (25-34); Mean Corpuscular Hgb Conc 34.1 g/dL (32-36); Mean Corpuscular Volume 89.7 fL (80-100); Mean Platelet Volume 11.4 fL (7.4-10.4); Platelet Count 296 K/uL (130-400); RDW Coefficient of Variation 13.4 % (11.5-14.5); RDW Standard Deviation 43.9 fL (36.4-46.3); Red Blood Count 4.84 M/uL (4.7-6.1); White Blood Count 10.72 K/uL (4.8-10.8)
[2020-07-23] MEDS: dexAMETHasone 4 MG TAB PO SCH (08:26)
[2020-07-23] MEDS: guaiFENesin 600 MG TABCR PO SCH ×2 (08:27→21:15)
[2020-07-23] MEDS: INSULIN ASPART 100 UNITS/ML 3 ML PEN SC SCH ×4 (09:50→21:07)
--- NOTE | 2020-07-23 17:48 | Hospitalist Progress Note ---
Date of Service July 23, 2020 Assessment & Plan (1) COVID-19: Feels somewhat improved today but still requiring oxygen supplementation Fevers and chills have improved reports some night sweats overnight Inflammatory markers improved after starting remdesivir yesterday Continues on dexamethasone Decided against plasma. Cont to monitor progress. (2) Paroxysmal atrial fibrillation: has a long history of afib in the past that is intermittent. Uses baby aspirin daily but not on any blood thinners in the past. Now on full dose lovenox. Has seen cardiology and was placed on Toprol, but uses half daily as this causes fatigue. Discussed the possibility of changing strategies in the hospital with current flight controls engineer. For now, the focus is the treatment of his hypoxia 2/2 covid-19 as he has already converted to sinus rhythm. Remained in sinus rhythm for the majority of the last 24 hours per telemetry review with only two short instances for an hour each of afib. (3) DMII (diabetes mellitus, type 2): A1C is 7.2. Cont insulin and add basal insulin as well, especially while on steroids. Around inpatient goal. He will need close follow-up with PCP and annual screening exams ordered after discharge. (4) DVT prophylaxis: Lovenox full dose Full Code Dispo-cont med tele. Plan for home when off oxygen. Deepti Chandler DO [facility] Hospitalist Admission and Anticipated Discharge Date Admission Date: July 21, 2020 Subjective Pt feeling improved today still requiring oxygen tolerating PO afebrile we discussed more in depth the pros and cons of receiving convalescent plasma and he decided against this for now. I contacted both the blood bank and the nurse and made them aware and cancelled the order in the system. He continuous on the remdesivir and the dexamethasone with a decrease in his inflammatory markers today Reports some chest congestion and achiness in his central chest with breathing stating "it's the kind of feeling you have when you have a chest cold" denies SOB or diarrhea today. Review of Systems Review of Systems: All systems reviewed & are unremarkable except as noted in Subjective Physical Exam Physical Exam: CONSTITUTIONAL: WNWD, vitals as above, generally well- appearing EYES: normal conjunctivae, no scleral icterus ENT: external ear and nose normal, oropharynx clear, MMM RESPIRATORY: clear to auscultation bilaterally, no crackles, rales or wheezes, normal respiratory effort CARDIOVASCULAR: regular rate and rhythm, S1 and 2 heard without murmurs, gallops or rubs, no JVD, no peripheral edema GASTROINTESTINAL: soft, nontender, no guarding, nondistended. MUSCULOSKELETAL: strength 5/5 throughout, head is normocephalic and atraumatic SKIN: warm and dry NEUROLOGIC: CN 2-12 grossly intact, normal cognition, normal speech, no tremor. No gross focal deficits. PSYCHIATRIC: alert cooperative and oriented to person, place and time. Results & Data Results & Data ([facility]) Vital Signs (Past 12 Hours) Vital Signs Temp Pulse Pulse Resp BP Pulse Ox 07/23/20 16:00 73 07/23/20 12:28 37.1 C 71 18 124/74 94 07/23/20 11:07 114 H 94 07/23/20 08:13 37.1 C 62 18 138/77 96 07/23/20 07:26 68 07/23/20 06:39 63 151/79 H Laboratory Results Short CBC 07/23/20 Range/Units 05:25 WBC 10.72 (4.8-10.8) K/uL Hgb 14.8 (14.0-18.0) g/dL Hct 43.4 (42-52) % Plt Count 296 (130-400) K/uL BMP 07/23/20 05:25 Sodium 138 Potassium 3.5 Chloride 105 Carbon Dioxide 27 BUN 18 Creatinine 0.98 Glucose 177 H Calcium 8.8 Medications Administered Current Inpatient Medications Acetaminophen (Acetaminophen 325 Mg Tab) 650 mg PO Q6H PRN PRN Reason: pain/fever Stop: 08/20/20 17:59 Albuterol (Albuterol Hfa 8 Gm Inhaler) 1 puffs INH QIDR PRN PRN Reason: shortness of breath Stop: 08/20/20 18:33 Last Admin: 07/21/20 19:51 Dose: 1 puffs Documented by: Dexamethasone (Dexamethasone 4 Mg Tab) 6 mg PO DAILY BRAD Stop: 08/20/20 18:29 Last Admin: 07/23/20 08:26 Dose: 6 mg Documented by: Dextrose (Dextrose 50% 50 Ml Syringe) 25 - 50 ml IV UD PRN; Protocol PRN Reason: Hypoglycemia Protocol Stop: 08/20/20 17:59 Enoxaparin Sodium (Enoxaparin Inj 120 Mg/0.8 Ml Syr) 120 mg SQ Q12H BRAD Stop: 08/21/20 04:59 Last Admin: 07/23/20 06:37 Dose: 120 mg Documented by: Glucagon (Glucagon For Inj 1 Mg Vial) 1 mg SQ UD PRN; Protocol PRN Reason: Hypoglycemia Protocol Stop: 08/20/20 17:59 Glucose (Glucose 40% Gel 15 Gm Tube) 15 - 30 gm PO UD PRN; Protocol PRN Reason: Hypoglycemia Protocol Stop: 08/20/20 17:59 Glucose (Glucose 10 Tabs/Tube) 4 - 8 tabs PO UD PRN; Protocol PRN Reason: Hypoglycemia Protocol Stop: 08/20/20 17:59 Guaifenesin (Guaifenesin 600 Mg Tabcr) 600 mg PO Q12 BRAD Stop: 08/20/20 20:59 Last Admin: 07/23/20 08:27 Dose: 600 mg Documented by: Remdesivir 100 mg/ Sodium (Chloride) 250 mls @ 250 mls/hr IV Q24H BRAD; Protocol Stop: 07/26/20 18:29 Insulin Aspart (Insulin Aspart 100 Units/Ml 3 Ml Pen) 0 units SC ACHS [facility] Stop: 08/20/20 20:59 Last Admin: 07/23/20 12:44 Dose: 2 units Documented by: Ipratropium [place] (Ipratropium [place] Hfa Inhaler) 1 puffs INH QIDR PRN PRN Reason: shortness of breath Stop: 08/20/20 18:59 Last Admin: 07/21/20 19:52 Dose: 1 puffs Documented by: Metoprolol Succinate (Metoprolol Succ 25mg Ext Rel Tab) 25 mg PO DAILY BRAD Stop: 08/22/20 05:19 Last Admin: 07/23/20 06:35 Dose: 25 mg Documented by: Miscellaneous (Carbohydrates For Hypoglycemia ) 15 - 30 gm PO UD PRN PRN Reason: Hypoglycemia Protocol Stop: 08/20/20 17:59 Sodium Chloride (Sodium Chloride 0.9% 10ml Flush) 30 ml IV Q24H BRAD Stop: 07/27/20 17:31
[2020-07-23] MEDS: REMDESIVIR 100 MG in SODIUM CHLORIDE 0.9% 230 ML IV SCH (18:29)
[2020-07-23] MEDS: SODIUM CHLORIDE 0.9% 10ML FLUSH IV SCH (18:30)
[2020-07-23] MEDS: INSULIN GLARGINE SOLOSTAR 100 UNITS/ML 3 ML PEN SC SCH (21:07)
[2020-07-24] MEDS: ENOXAPARIN INJ 120 MG/0.8 ML SYR SQ SCH ×2 (06:09→17:33)
[2020-07-24 06:45] LABS: Creatinine Clr Calc Pharmacy 123.6 ml/min
[2020-07-24] MEDS: guaiFENesin 600 MG TABCR PO SCH ×2 (08:22→21:41)
[2020-07-24] MEDS: dexAMETHasone 4 MG TAB PO SCH (08:22)
[2020-07-24] MEDS: METOPROLOL SUCC 25MG EXT REL TAB PO SCH (08:22)
--- NOTE | 2020-07-24 08:24 | Hospitalist Progress Note ---
Date of Service July 24, 2020 Assessment & Plan (1) COVID-19: 07/24-updated by night nurse that patient wanted to press forward with the plasma. I called the patient by phone and he verbalized this to me, also. He has been well-informed of the risks and benefits and gave verbal consent, but has also signed a written consent which is in his room. I contacted the blood bank who has the unit, and they will thaw and transfuse this today. Order placed in the EMR. Malaise persists-->cont remdesivir/dex-->plasma tonight (2) Paroxysmal atrial fibrillation: has a long history of afib in the past that is intermittent. Uses baby aspirin daily but not on any blood thinners in the past. Now on full dose lovenox. Has seen cardiology and was placed on Toprol, but uses half daily as this causes fatigue. Discussed the possibility of changing strategies in the hospital with current sprinkler inspector. For now, the focus is the treatment of his hypoxia 2/2 covid-19 as he has already converted to sinus rhythm. Remained in sinus rhythm for the majority of the last 24 hours per telemetry review with only two short instances for an hour each of afib. Transfer off telemetry monitoring at this point. (3) DMII (diabetes mellitus, type 2): A1C is 7.2. Cont insulin and add basal insulin as well, especially while on steroids. Around inpatient goal. He will need close follow-up with PCP and annual screening exams ordered after discharge. We discussed the new formal dx of diabetes and all this entails. Defer to discharging provider to start metformin or not as a transition back to his PCP. (4) DVT prophylaxis: Lovenox full dose Full Code Dispo-cont med tele. Plan for home when off oxygen. Deepti Chandler DO [facility] Hospitalist Admission and Anticipated Discharge Date Admission Date: July 21, 2020 Subjective Pt reports increased malaise today still SOB and requiring oxygen afebrile today tolerating PO Review of Systems Review of Systems: All systems reviewed & are unremarkable except as noted in Subjective Physical Exam Physical Exam: CONSTITUTIONAL: WNWD, vitals as above, generally well- appearing EYES: normal conjunctivae, no scleral icterus ENT: external ear and nose normal, oropharynx clear, MMM RESPIRATORY: clear to auscultation bilaterally, no crackles, rales or wheezes, normal respiratory effort CARDIOVASCULAR: regular rate and rhythm, S1 and 2 heard without murmurs, gallops or rubs, no JVD, no peripheral edema GASTROINTESTINAL: soft, nontender, no guarding, nondistended. MUSCULOSKELETAL: strength 5/5 throughout, head is normocephalic and atraumatic SKIN: warm and dry NEUROLOGIC: CN 2-12 grossly intact, normal cognition, normal speech, no tremor. No gross focal deficits. PSYCHIATRIC: alert cooperative and oriented to person, place and time. Results & Data Results & Data ([facility]) Vital Signs (Past 12 Hours) Vital Signs Temp Pulse Pulse Resp BP Pulse Ox 07/24/20 04:00 36.7 C 65 18 134/80 96 07/24/20 02:48 61 07/23/20 23:00 36.3 C L 78 18 127/82 95 Laboratory Results [facility] 07/24/20 06:01 Creatinine 0.85 Liver Function 07/24/20 Range/Units 06:01 AST 17 (15-37) U/L ALT 35 (12-78) U/L Medications Administered Current Inpatient Medications Acetaminophen (Acetaminophen 325 Mg Tab) 650 mg PO Q6H PRN PRN Reason: pain/fever Stop: 08/20/20 17:59 Albuterol (Albuterol Hfa 8 Gm Inhaler) 1 puffs INH QIDR PRN PRN Reason: shortness of breath Stop: 08/20/20 18:33 Last Admin: 07/21/20 19:51 Dose: 1 puffs Documented by: Dexamethasone (Dexamethasone 4 Mg Tab) 6 mg PO DAILY BRAD Stop: 08/20/20 18:29 Last Admin: 07/23/20 08:26 Dose: 6 mg Documented by: Dextrose (Dextrose 50% 50 Ml Syringe) 25 - 50 ml IV UD PRN; Protocol PRN Reason: Hypoglycemia Protocol Stop: 08/20/20 17:59 Enoxaparin Sodium (Enoxaparin Inj 120 Mg/0.8 Ml Syr) 120 mg SQ Q12H BRAD Stop: 08/21/20 04:59 Last Admin: 07/24/20 06:09 Dose: 120 mg Documented by: Glucagon (Glucagon For Inj 1 Mg Vial) 1 mg SQ UD PRN; Protocol PRN Reason: Hypoglycemia Protocol Stop: 08/20/20 17:59 Glucose (Glucose 40% Gel 15 Gm Tube) 15 - 30 gm PO UD PRN; Protocol PRN Reason: Hypoglycemia Protocol Stop: 08/20/20 17:59 Glucose (Glucose 10 Tabs/Tube) 4 - 8 tabs PO UD PRN; Protocol PRN Reason: Hypoglycemia Protocol Stop: 08/20/20 17:59 Guaifenesin (Guaifenesin 600 Mg Tabcr) 600 mg PO Q12 BRAD Stop: 08/20/20 20:59 Last Admin: 07/23/20 21:15 Dose: 600 mg Documented by: Remdesivir 100 mg/ Sodium (Chloride) 250 mls @ 250 mls/hr IV Q24H BRAD; Protocol Stop: 07/26/20 18:29 Last Infusion: 07/23/20 19:29 Dose: Infused Documented by: Insulin Aspart (Insulin Aspart 100 Units/Ml 3 Ml Pen) 0 units SC ACHS BRAD Stop: 08/20/20 20:59 Last Admin: 07/23/20 21:07 Dose: 4 units Documented by: Insulin Glargine (Insulin Glargine Solostar 100 Units/Ml 3 Ml Pen) 15 units SC BID BRAD Stop: 08/22/20 20:59 Last Admin: 07/23/20 21:07 Dose: 15 units Documented by: Ipratropium Milton (Ipratropium Milton Hfa Inhaler) 1 puffs INH QIDR PRN PRN Reason: shortness of breath Stop: 08/20/20 18:59 Last Admin: 07/21/20 19:52 Dose: 1 puffs Documented by: Metoprolol Succinate (Metoprolol Succ 25mg Ext Rel Tab) 25 mg PO DAILY [facility] Stop: 08/22/20 05:19 Last Admin: 07/23/20 06:35 Dose: 25 mg Documented by: Miscellaneous (Carbohydrates For Hypoglycemia ) 15 - 30 gm PO UD PRN PRN Reason: Hypoglycemia Protocol Stop: 08/20/20 17:59 Sodium Chloride (Sodium Chloride 0.9% 10ml Flush) 30 ml IV Q24H BRAD Stop: 07/27/20 17:31 Last Admin: 07/23/20 18:30 Dose: 30 ml Documented by:
[2020-07-24] MEDS: INSULIN ASPART 100 UNITS/ML 3 ML PEN SC SCH ×4 (08:31→22:00)
[2020-07-24] MEDS: INSULIN GLARGINE SOLOSTAR 100 UNITS/ML 3 ML PEN SC SCH ×2 (08:32→22:00)
[2020-07-24] MEDS ORDERED: ACETAMINOPHEN 325 MG TAB PO ONE (10:00)
[2020-07-24] MEDS ORDERED: diphenhydrAMINE Capsule 25 MG CAP PO ONE (10:00)
[2020-07-24] MEDS: REMDESIVIR 100 MG in SODIUM CHLORIDE 0.9% 230 ML IV SCH (17:33)
[2020-07-24] MEDS: SODIUM CHLORIDE 0.9% 10ML FLUSH IV SCH (18:46)
[2020-07-24] MEDS ORDERED: diphenhydrAMINE Capsule 25 MG CAP ONE (21:27)
[2020-07-25] MEDS: ENOXAPARIN INJ 120 MG/0.8 ML SYR SQ SCH ×2 (05:16→17:22)
[2020-07-25 06:44] LABS: Hematocrit (blood only) 42.2 % (42-52); Hemoglobin 14.2 g/dL (14.0-18.0); Mean Corpuscular Hemoglobin 30.3 pg (25-34); Mean Corpuscular Hgb Conc 33.6 g/dL (32-36); Platelet Count 310 K/uL (130-400); RDW Coefficient of Variation 13.4 % (11.5-14.5); RDW Standard Deviation 43.9 fL (36.4-46.3); Red Blood Count 4.69 M/uL (4.7-6.1); White Blood Count 10.34 K/uL (4.8-10.8)
[2020-07-25 06:45] LABS: BUN Creatinine Ratio 23.6 (10-20); Calcium 8.7 mg/dl (8.5-10.1); Creatinine Clr Calc Pharmacy 117.9 ml/min; Est GFR (Non-African American) 92.3; Potassium 3.6 mmol/L (3.5-5.1)
[2020-07-25] MEDS ORDERED: ACETAMINOPHEN 325 MG TAB PO PRN (07:33)
[2020-07-25] MEDS: dexAMETHasone 4 MG TAB PO SCH (08:55)
[2020-07-25] MEDS: guaiFENesin 600 MG TABCR PO SCH ×2 (08:55→21:10)
[2020-07-25] MEDS: METOPROLOL SUCC 25MG EXT REL TAB PO SCH (08:55)
[2020-07-25] MEDS: INSULIN ASPART 100 UNITS/ML 3 ML PEN SC SCH ×4 (09:00→22:16)
[2020-07-25] MEDS: INSULIN GLARGINE SOLOSTAR 100 UNITS/ML 3 ML PEN SC SCH ×2 (09:01→22:15)
--- NOTE | 2020-07-25 17:20 | Hospitalist Progress Note ---
Date of Service July 25, 2020 Assessment & Plan (1) COVID-19: initially with shortness of breath on exertion secondary to COVID-19 Elevated D-dimer on presentation -as per the 07/21/2020 History and Physical "Present on admission with worsening SOB with minimal exertion associated with palpitation; Was testing positive for COVID 19 on 07/09, but SOB worsening in the last few days -elevated D-dimer on presentation -07/21/2020 CTA "No evidence of acute pulmonary embolism. Multifocal bilateral groundglass pulmonary opacities with a peripheral distribution. The findings are indicative of a bilateral pneumonitis, likely viral." -as per initial assessment, the admitting hospitalist Dr. Solorzano discussed with pulmonary Dr. Ortiz and there was no indication for Remdesivir since symptoms has been going for more than 10 days -Patient was empirically started on dexamethasone 6 mg daily; subsequent hospitalist Dr. Chandler did start Remdesivir 100 mg IV daily starting on 07/23/2020, Patient received convalescent plasma on 07/24/2020 -as of 07/25/2020, patient passed the 2 step test and did not require and supplementary oxygen with rest and with ambulation -Patient has been observed so far on room air and clinically doing well. Business Performance Analyst will try to arrange for transportation for possible discharge by 07/25/2020 (2) Paroxysmal atrial fibrillation: -has a long history of atrial fibrillation in the past that is intermittent. Uses baby aspirin daily but not on any blood thinners in the past. Has seen cardiology as outpatient and was placed on Toprol, but uses half daily as this causes fatigue. -heart rate stable on current Metoprolol succinate 25 mg daily -has been on Lovenox as 120 mg subcutaneous BID (1 mg.kg) in context of history of paroxysmal atrial fibrillation and recent COVID-19 infection while in the hospital. discussed with patient about plans to discharge with Xarelto or Eliquis -replace the outpatient dose of aspirin 81 mg daily with Xarelto or Eliquis on discharge -will need cardiology clinic follow up Mild Hypokalemia on presentation -Potassium on admission 3.3 -potassium repleted on this admission (3) DMII (diabetes mellitus, type 2): -HbA1C is 7.2, not on any diabetes mellitus medications -has been treated with insulin as needed while in the hospital -can consider hospital discharge with metformin and outpatient primary care do ctor follow up in regards to other diabetes care such as eye exams (4) DVT prophylaxis: -has been on Lovenox as 120 mg subcutaneous BID (1 mg.kg) in context of history of paroxysmal atrial fibrillation and recent COVID-19 infection while in the hospital. discussed with patient about plans to discharge with Xarelto or [place] Full Code Admission and Anticipated Discharge Date Admission Date: July 21, 2020 Subjective Patient seen and examined at bedside. On room air. No acute distress. He feels overall subjective improvements in breathing during this hospital stay. denies acute pain anywhere of the body. Patient has no family member who can transport him home. He discussed with case sealer about getting shuttle transportation for possible discharge to home by 07/26/2020 Review of Systems Review of Systems: All systems reviewed & are unremarkable except as noted in Subjective Physical Exam Constitutional: comfortable Eyes: PERRL, conjunctivae normal, anicteric sclerae EOM intact bilaterally ENMT: external ear and nose normal, oropharynx normal Neck: normal visual inspection Respiratory: normal respiratory effort Cardiovascular: Rate/Rhythm: regular rate Gastrointestinal (Abdomen): normal bowel sounds, soft, nontender, no hepatosplenomegaly Musculoskeletal: Head/Neck/Chest: normocephalic and head atraumatic Neurologic: PERRL, EOMI, accommodation nl, no face palsy, no dysarthria CN's II-XI intact bilaterally Psychiatric: A+Ox3, euthymic affect Results & Data Results & Data ([facility]) Vital Signs (Past 12 Hours) Vital Signs Temp Pulse Pulse Pulse Pulse Resp Resp 07/25/20 10:33 68 75 68 20 07/25/20 09:06 36.8 C 07/25/20 08:18 60 18 Resp Resp BP Pulse Ox Pulse Ox Pulse Ox Pulse Ox 07/25/20 10:33 20 20 95 94 94 07/25/20 09:06 93 07/25/20 08:18 135/82 98
[2020-07-25] MEDS: REMDESIVIR 100 MG in SODIUM CHLORIDE 0.9% 230 ML IV SCH (17:22)
[2020-07-25] MEDS: SODIUM CHLORIDE 0.9% 10ML FLUSH IV SCH (18:45)
[2020-07-26] MEDS: ENOXAPARIN INJ 120 MG/0.8 ML SYR SQ SCH (06:03)
[2020-07-26 07:03] LABS: Basophils # (auto) 0.01 K/uL (0-0.2); Basophils % (auto) 0.1 %; Hematocrit (blood only) 41.9 % (42-52); Hemoglobin 14.5 g/dL (14.0-18.0); Immature Granulocytes # (auto) 0.16 K/uL (0.00-0.02); Immature Granulocytes % (auto) 1.1 %; Lymphocytes # (auto) 1.43 K/uL (1.2-3.4); Lymphocytes % (auto) 10.2 %; Mean Corpuscular Hemoglobin 31.1 pg (25-34); Mean Corpuscular Hgb Conc 34.6 g/dL (32-36); Mean Corpuscular Volume 89.9 fL (80-100); Monocytes # (auto) 1.65 K/uL (0.11-0.59); Monocytes % (auto) 11.8 %; Neutrophils # (auto) 10.77 K/uL (1.4-6.5); Neutrophils % (auto) 76.8 %; Platelet Count 301 K/uL (130-400); RDW Coefficient of Variation 13.5 % (11.5-14.5); Red Blood Count 4.66 M/uL (4.7-6.1); White Blood Count 14.02 K/uL (4.8-10.8)
[2020-07-26 07:36] LABS: Albumin Level 2.9 gm/dl (3.4-5.0); BUN Creatinine Ratio 22.3 (10-20); Calcium 8.4 mg/dl (8.5-10.1); Creatinine Clr Calc Pharmacy 126.5 ml/min; Est GFR (African American) 110.1; Potassium 3.4 mmol/L (3.5-5.1)
[2020-07-26 07:41] LABS: Albumin Globulin Ratio 0.8 (0.9-2); Bilirubin,Total 0.9 mg/dl (0.2-1); C Reactive Protein 3.73 mg/dl (0-0.29); Ferritin 1005.8 ng/ml (8-388); Globulin 3.7 gm/dl (2.5-4.0); Total Protein 6.6 gm/dl (6.4-8.2)
[2020-07-26] MEDS: METOPROLOL SUCC 25MG EXT REL TAB PO SCH (08:19)
[2020-07-26] MEDS: guaiFENesin 600 MG TABCR PO SCH (08:19)
[2020-07-26] MEDS: INSULIN ASPART 100 UNITS/ML 3 ML PEN SC SCH ×2 (08:24→12:53)
[2020-07-26] MEDS: INSULIN GLARGINE SOLOSTAR 100 UNITS/ML 3 ML PEN SC SCH (08:25)
[2020-07-26] MEDS ORDERED: POTASSIUM CHLORIDE CRTAB 20 MEQ TABCR PO STA (09:35)
--- NOTE | 2020-07-26 10:09 | Hospitalist Progress Note ---
Date of Service July 26, 2020 Assessment & Plan (1) COVID-19: initially with shortness of breath on exertion secondary to COVID-19 Elevated D-dimer on presentation -as per the 07/21/2020 History and Physical "Present on admission with worsening SOB with minimal exertion associated with palpitation; Was testing positive for COVID 19 on 07/09, but SOB worsening in the last few days -elevated D-dimer on presentation -07/21/2020 CTA "No evidence of acute pulmonary embolism. Multifocal bilateral groundglass pulmonary opacities with a peripheral distribution. The findings are indicative of a bilateral pneumonitis, likely viral." -as per initial assessment, the admitting hospitalist Dr. Solorzano discussed with pulmonary Dr. Ortiz and there was no indication for Remdesivir since symptoms has been going for more than 10 days -Patient was empirically started on dexamethasone 6 mg daily; subsequent hospitalist Dr. Chandler did start Remdesivir 100 mg IV daily starting on 07/23/2020, Patient received convalescent plasma on 07/24/2020 -as of 07/25/2020, patient passed the 2 step test and did not require and supplementary oxygen with rest and with ambulation -Patient has been observed so far on room air and clinically doing well. -07/26/2020 no fever. Leukocytosis on 07/26/2020 of 14 K are from recent hospital course of dexamethasone 6 mg daily for which the medication stopped on 07/25/2020 because of clinical improvements -Loan Inspector to arrange for transportation for discharge by 07/25/2020 discharge pharmacy of [address] [place] [address], [place] [address] -renewed medications of metoprolol succinate as 25 mg daily for heart rate control of Paroxysmal atrial fibrillation -patient to start new medication to prevent stroke prevention from Paroxysmal atrial fibrillation as Eliquis (apixaban) 5 mg twice a day -patient should avoid aspirin or NSAID medications such as ibuprofen while on Eliquis to decrease chances of bleeding -new medication of metformin 500 mg daily because of diagnosis of diabetes mellitus (note that there are some cases of metformin recalled from the commercial market recently, patient may discuss with primary care doctor before starting this medication) scheduled appointments 07/30/2020 11:40 AM Provider Moustapha Wall MD [facility] -HbA1C is 7.2, not on any diabetes mellitus medications -has been treated with insulin as needed while in the hospital -can consider hospital discharge with metformin and outpatient primary care doctor follow up in regards to other diabetes care such as eye exams -09/27/2020 9:30 AM Provider Marketer 1 Department Cardiac Studies, [facility] -cardiology clinic [facility] 08/15/2020 at 3 PM with ERIC Joseph (2) Paroxysmal atrial fibrillation: -has a long history of atrial fibrillation in the past that is intermittent. Uses baby aspirin daily but not on any blood thinners in the past. Has seen cardiology as outpatient and was placed on Toprol, but uses half daily as this causes fatigue. -heart rate stable on current Metoprolol succinate 25 mg daily -has been on Lovenox as 120 mg subcutaneous BID (1 mg.kg) in context of history of paroxysmal atrial fibrillation and recent COVID-19 infection while in the hospital. discussed with patient about plans to discharge with Xarelto or Eliquis -replace the outpatient dose of aspirin 81 mg daily with Xarelto or Eliquis on discharge -will need cardiology clinic follow up -management as above Mild Hypokalemia on presentation -Potassium on admission 3.3 -potassium repleted on this admission -additional potassium given on discharge when serum potassium 3.4 on 07/26/2020 (3) DMII (diabetes mellitus, type 2): -HbA1C is 7.2, not on any diabetes mellitus medications -has been treated with insulin as needed while in the hospital -hospital discharge with metformin and outpatient primary care doctor follow up in regards to other diabetes care such as eye exams as discuss with patient (4) DVT prophylaxis: -has been on Lovenox as 120 mg subcutaneous BID (1 mg.kg) in context of history of paroxysmal atrial fibrillation and recent COVID-19 infection while in the hospital. transition to Eliquis on discharge Full Code Admission and Anticipated Discharge Date Admission Date: July 21, 2020 Subjective Patient with no acute distress. breathing on room air. good lung exam. patient denies coughing. patient ambulatory. no acute pain anywhere. no other symptoms on review of systems. no fever. Leukocytosis on 07/26/2020 of 14 K are from recent hospital course of dexamethasone 6 mg daily for which the medication stopped on 07/25/2020 because of clinical improvements Review of Systems Review of Systems: All systems reviewed & are unremarkable except as noted in Subjective Physical Exam Constitutional: comfortable Eyes: PERRL, conjunctivae normal, anicteric sclerae EOM intact bilaterally ENMT: external ear and nose normal, oropharynx normal Neck: normal visual inspection Respiratory: normal respiratory effort Cardiovascular: Rate/Rhythm: regular rate Gastrointestinal (Abdomen): normal bowel sounds, soft, nontender, no hepatosplenomegaly Musculoskeletal: Head/Neck/Chest: normocephalic and head atraumatic Neurologic: PERRL, EOMI, accommodation nl, no face palsy, no dysarthria CN's II-XI intact bilaterally Psychiatric: A+Ox3, euthymic affect Results & Data Results & Data ([facility]) Vital Signs (Past 12 Hours) Vital Signs Temp Pulse Resp BP Pulse Ox 07/26/20 08:27 36.9 C 69 18 118/73 95 07/25/20 23:51 37.0 C 79 18 128/78 93
--- NOTE | 2020-07-26 10:14 | Discharge Summary ---
Date of Service July 26, 2020 Admission HPI Per Admitting Provider male60 years old type 2 diabetes with past medical history of paroxysmal A. fib, with worsening shortness of breath presented to the ER. Patient said on July 10 he was tested positive for Covid 19. He said his shortness of breath has been getting worse because with little exertion he runs out of breath and gets tired. He said that he has been having productive cough with brown sputum. He said last week he had diarrhea,and fever that resolved now. He said that he vomited once last week. He said he has not been eating in the past 2 weeks and felt very weak. Today his breathing felt worse associated with palpitation. Last time he was in A. fib was about 5 months ago. He is on metoprolol but only takes it unless he has symptoms. He takes baby aspirin on and off. Currently he said he felt much better with the oxygen supplement. Denies any chest pain, palpitation, dizziness, nausea. Lab done in the ER showed elevated of D-dimer. CTA chest was negative for PE. Lovenox was given for the A. fib. Principal Diagnosis COVID-19 initially with shortness of breath on exertion secondary to COVID-19 Elevated D-dimer on presentation Paroxysmal atrial fibrillation Hypokalemia DMII (diabetes mellitus, type 2) Discharge Exam Constitutional comfortable Eyes PERRL, conjunctivae normal, anicteric sclerae EOM intact bilaterally ENMT external ear and nose normal, oropharynx normal Neck normal visual inspection Respiratory normal respiratory effort Cardiovascular Rate/Rhythm: regular rate Gastrointestinal (Abdomen) normal bowel sounds, soft, nontender, no hepatosplenomegaly Musculoskeletal Head/Neck/Chest: normocephalic and head atraumatic Neurologic PERRL, EOMI, accommodation nl, no face palsy, no dysarthria CN's II-XI intact bilaterally Psychiatric A+Ox3, euthymic affect Discharge Data Allergies Allergy/AdvReac Type Severity Reaction Status Date / Time No Known Allergies Allergy Unverified 07/21/20 13:04 Consultations 07/21/20 14:07 ED Decision to Admit Stat 07/21/20 18:00 Consult Cardiology Routine Ordered Studies 07/21/20 13:17 CT angio chest PE protocol Stat Hospital Course (1) COVID-19: initially with shortness of breath on exertion secondary to COVID-19 Elevated D-dimer on presentation -as per the 07/21/2020 History and Physical "Present on admission with worsening SOB with minimal exertion associated with palpitation; Was testing positive for COVID 19 on 07/09, but SOB worsening in the last few days -elevated D-dimer on presentation -07/21/2020 CTA "No evidence of acute pulmonary embolism. Multifocal bilateral groundglass pulmonary opacities with a peripheral distribution. The findings are indicative of a bilateral pneumonitis, likely viral." -as per initial assessment, the admitting hospitalist Dr. Solorzano discussed with pulmonary Dr. Ortiz and there was no indication for Remdesivir since symptoms has been going for more than 10 days -Patient was empirically started on dexamethasone 6 mg daily; subsequent hospitalist Dr. Chandler did start Remdesivir 100 mg IV daily starting on 07/23/2020, Patient received convalescent plasma on 07/24/2020 -as of 07/25/2020, patient passed the 2 step test and did not require and supplementary oxygen with rest and with ambulation -Patient has been observed so far on room air and clinically doing well. -07/26/2020 no fever. Leukocytosis on 07/26/2020 of 14 K are from recent hospital course of dexamethasone 6 mg daily for which the medication stopped on 07/25/2020 because of clinical improvements -[employer] to arrange for transportation for discharge by 07/25/2020 discharge pharmacy of [address] [place] [address], [place] [id number] -renewed medications of metoprolol succinate as 25 mg daily for heart rate control of Paroxysmal atrial fibrillation -patient to start new medication to prevent stroke prevention from Paroxysmal atrial fibrillation as Eliquis (apixaban) 5 mg twice a day -patient should avoid aspirin or NSAID medications such as ibuprofen while on Eliquis to decrease chances of bleeding -new medication of metformin 500 mg daily because of diagnosis of diabetes mellitus (note that there are some cases of metformin recalled from the [employer] market recently, patient may discuss with primary care doctor before starting this medication) scheduled appointments 07/30/2020 11:40 AM Provider Moustapha Wall MD Department Family Practice [facility] -HbA1C is 7.2, not on any diabetes mellitus medications -has been treated with insulin as needed while in the hospital -can consider hospital discharge with metformin and outpatient primary care doctor follow up in regards to other diabetes care such as eye exams -09/27/2020 9:30 AM Provider Laboratory Scientist 1 Department Cardiac Studies, [facility] -cardiology clinic [facility] 08/15/2020 at 3 PM with ERIC Joseph (2) Paroxysmal atrial fibrillation: -has a long history of atrial fibrillation in the past that is intermittent. Uses baby aspirin daily but not on any blood thinners in the past. Has seen cardiology as outpatient and was placed on Toprol, but uses half daily as this causes fatigue. -heart rate stable on current Metoprolol succinate 25 mg daily -has been on Lovenox as 120 mg subcutaneous BID (1 mg.kg) in context of history of paroxysmal atrial fibrillation and recent COVID-19 infection while in the hospital. discussed with patient about plans to discharge with Xarelto or Eliquis -replace the outpatient dose of aspirin 81 mg daily with Xarelto or Eliquis on discharge -will need cardiology clinic follow up -management as above Mild Hypokalemia on presentation -Potassium on admission 3.3 -potassium repleted on this admission -additional potassium given on discharge when serum potassium 3.4 on 07/26/2020 (3) DMII (diabetes mellitus, type 2): -HbA1C is 7.2, not on any diabetes mellitus medications -has been treated with insulin as needed while in the hospital -hospital discharge with metformin and outpatient primary care doctor follow up in regards to other diabetes care such as eye exams as discuss with patient (4) DVT prophylaxis: -has been on Lovenox as 120 mg subcutaneous BID (1 mg.kg) in context of history of paroxysmal atrial fibrillation and recent COVID-19 infection while in the hospital. transition to Eliquis on discharge Full Code Total Time Total Time Spent Total Time Spent (In Minutes): 40 minutes Total Time Includes: Examination of the Patient, Discharge Planning, Medication Reconciliation and Communication With Other Providers Discharge Plan Discharge Items Patient Disposition: Home - Self-Care Reason For Visit: WORSENING SOB Discharge Diagnosis: COVID-19 initially with shortness of breath on exertion secondary to COVID-19 Elevated D-dimer on presentation Paroxysmal atrial fibrillation Hypokalemia DMII (diabetes mellitus, type 2) Condition on Discharge: Good Activity: Per Instructions section Bathing: No limitations Exercise/Sports: Gradually increase as tolerated Driving/Machine Use: No limitations Weightbearing: Full weightbearing Non-emergency contact: Primary Care Provider Call non-emergency contact if: you have any medication questions Follow-up/Referrals: Moustapha Wall MD [Primary Care Provider] - Diet: Carb Consistent or DM2 and Heart Healthy Addtl Attending Provider Instructions: Was testing positive for COVID 19 on 07/09/2020 Patient advised to wear masks in public places [employer] Coordinator Provider Instructions: discharge pharmacy of [address] [place] [address], [place] [address] -renewed medications of metoprolol succinate as 25 mg daily for heart rate control of Paroxysmal atrial fibrillation -patient to start new medication to prevent stroke prevention from Paroxysmal atrial fibrillation as Eliquis (apixaban) 5 mg twice a day -patient should avoid aspirin or NSAID medications such as ibuprofen while on Eliquis to decrease chances of bleeding -new medication of metformin 500 mg daily because of diagnosis of diabetes mellitus (note that there are some cases of metformin recalled from the commercial market recently, patient may discuss with primary care doctor before starting this medication) scheduled appointments 07/30/2020 11:40 AM Provider Moustapha Wall MD Department Family Practice [facility] -HbA1C is 7.2, not on any diabetes mellitus medications -has been treated with insulin as needed while in the hospital -can consider hospital discharge with metformin and outpatient primary care doctor follow up in regards to other diabetes care such as eye exams -09/27/2020 9:30 AM Provider Laboratory Scientist 1 Department Cardiac Studies, [facility] -cardiology clinic [facility] 08/15/2020 at 3 PM with ERIC Joseph Pending Studies at Discharge: No Stand-Alone Forms: My [facility] [employer], Smoking Cessation Medications and DC Order Prescriptions: New metoprolol succinate 25 mg Tablet Extended Release 24 Hr 25 mg PO DAILY 30 Days Qty: 30 RF: 0 Eliquis 5 mg Tablet 5 mg PO BID 30 Days Qty: 60 RF: 0 metformin 500 mg tablet 500 mg PO DAILY 30 Days Qty: 30 RF: 0 Discontinued metoprolol succinate 25 mg Tablet Extended Release 24 Hr 25 mg PO DAILY RF: 0 aspirin 81 mg 81 mg PO DAILY RF: 0 Discharge Orders: Discharge Order (Routine); Ordered 07/26/20 Ordered By: Dameon Hamilton/Other Patient Handouts: Managing Type 2 Diabetes, Diabetes: Meal Planning, A1C Admission Data Admit Date/Time: 07/21/20 16:31 Attending Provider: Dameon Zamora Admit Provider: Juan Solorzano Primary Care Provider: Moustapha Wall Other Providers: Juan Solorzano ; Sukhdeep Perea
[2020-07-26] MEDS ORDERED: APIXABAN 5 MG TABLET PO SCH (21:00)
== END 2020-07-26 15:00 | disposition home or self-care (01) | DRG 179 ==
LOC: ED 12:13 → 2N 16:31 → SUATTDRO 16:31 → 2N 17:39

== ENCOUNTER 2024-09-23 05:02 | Observation (INO) ==
--- NOTE | 2024-08-22 14:57 | PAT Medication Instructions ---
Medication Instructions Date of Service August 22, 2024 Home Medications Medication Instructions Recorded nirmatrelvir 300 mg (150 mg See Rx Instructions PO .COMPLEX 05/29/24 x2)-ritonavir 100 mg tablet,dose #30 tabs pack (Paxlovid) metoprolol succinate 25 mg tablet,extended release 24 hr 25 mg PO DAILY PRN nirmatrelvir 300 mg (150 mg x2)-ritonavir 100 mg tablet,dose pack (Paxlovid) See Rx Instructions PO .COMPLEX hydrocodone 5 mg-acetaminophen 300 mg tablet 1 tab PO BID PRN metformin 1,000 mg tablet 1,000 mg PO QAM Continue as directed nirmatrelvir 300 mg (150 mg x2)-ritonavir 100 mg tablet,dose pack (Paxlovid) See Rx Instructions PO .COMPLEX metoprolol succinate 25 mg tablet,extended release 24 hr 25 mg PO DAILY PRN(if needed) DO NOT take the morning of surgery metformin 1,000 mg tablet 1,000 mg PO QAM Take morning of surgery With a small sip of water, OTHERWISE NOTHING TO EAT OR DRINK AFTER MIDNIGHT: hydrocodone 5 mg-acetaminophen 300 mg tablet 1 tab PO BID PRN(if needed) Take evening before surgery hydrocodone 5 mg-acetaminophen 300 mg tablet 1 tab PO BID PRN(if needed) Other Notes If you have any questions please call us at [phone] or [phone] or [phone] or [phone]
--- NOTE | 2024-08-30 12:53 | Anesthesiology Consultation ---
Date of Service August 30, 2024 Assessment & Plan (1) Encounter for pre-operative examination: - Check BSG DOS - Infectious disease screening: Per assessment on 08/30/24- No known recent infectious disease contacts or current infectious disease symptoms. - Outpatient joint assessment: Pt currently scheduled for inpatient pathway. If surgeon requests review for outpatient joint pathway, patient is an acceptable candidate for outpatient joint program from anesthesia standpoint pending surgeon's office assessment that patient is motivated, has good support and completes Same Day Joint Program preop requirements. - Cardiology visit (02/24/24): "Paroxysmal atrial fibrillation.. patient overall feels well, occasional palpitations, would likely benefit from daily metoprolol, however he currently takes as needed.. [id number] score of 1, had discussion about anticoagulation vs antiplatelet therapy, patient prefers to not take any medications at this time.. stroke education provide.. discussed risks vs benefits of statins, declines at this time.. recommend exercise as tolerated, Mediterranean diet, cut back on alcohol consumption.. Hemoglobin A1C 8.1, has been trending up.. had long discussion about possible diabetic complications, declines medications for diabetes, encouraged low carb diet.. Follow up 1 year or sooner if symptoms worsen/fail to improve." Chart Review Chart Review: Acceptable Risk for Surgery and Patient seen in Pre Admission Testing Teaching & Discussion Pre-Anesthesia Teaching/Discussion Notes: Instructed NPO after midnight before surgery,except medications with 15 cc of water. Medication instructions pr ovided according to the PAT guidelines. History Surgery Operation Date: 09/23/24 11:00 Proposed Procedures p Right Anterior Total Hip Arthroplasty - Jeison Jose, Height/Weight Height: 6 ft 2 in Weight: 116.7 kg Allergies Allergy/AdvReac Type Severity Reaction Status Date / Time No Known Allergies Allergy Unverified 08/22/24 10:55 Medications Home Medications Medication Instructions Recorded Confirmed Last Taken metoprolol succinate 25 mg 25 mg PO DAILY PRN heart 05/29/24 08/22/24 Unknown tablet,extended release 24 hr palpitations nirmatrelvir 300 mg (150 mg See Rx Instructions PO .COMPLEX 05/29/24 05/29/24 Unknown x2)-ritonavir 100 mg tablet,dose #30 tabs pack (Paxlovid) hydrocodone 5 mg-acetaminophen 300 1 tab PO BID PRN Severe Pain 08/22/24 08/22/24 Unknown mg tablet (Scale Score 7-10) metformin 1,000 mg tablet 1,000 mg PO QAM 08/22/24 08/22/24 Unknown Past Medical History Medical History Diabetes History of COVID-19 2019- hospitalized ([facility]) 05/29/2024- no hospitalization, lingering fatigue and brain fog Obesity Osteoarthritis Paroxysmal atrial fibrillation Follows with [facility] cardio Exercise / Class Metabolic Activity III < 4 Walking/Shop/Light housework Past Surgical History Surgical History History of placement of ear tubes History of postoperative nausea and vomiting after hernia repair ~2004 Hx of colonoscopy Hx of hernia repair Hx of oral surgery Past Anesthesia History No Hx of Anesthesia Complications and No Family Hx of Anesthesia Complications History of PONV No Hx of Motion Sickness and History of PONV Social History Smoking Status: Former smoker Do You Dip or Chew Tobacco: No Smoking End Date: Quit >10 yrs ago Hx Alcohol Use: Yes Alcohol type: beer and hard liquor alcohol intake frequency: a few times a week Hx Substance Use: No substance use type: does not use Review of Systems Patient denies chest pain, shortness of breath, fever, chills, cough, wheezing, palpitations. Physical Exam Vital Signs BP 132/80 P 73 TEMP 98.5 SP02 96%RA RESP 16 Physical Full cervical extension range of motion. Full TMJ range of motion. TMD > 3.5 finger breaths Mallampati Score III Dentition: missing molars, + caps Lungs: clear throughout to auscultation Cardiac: regular rate and rhythm, no murmurs noted Spine: normal Carotid arteries: negative bruit Extremities: no LE edema Lab Results Anesthesia Preop Results Results Anesthesia Widget: WBC 9.02 K/ul (4.8-10.8) 08/30/24 Hgb 13.9 g/dl (14.0-18.0) L 08/30/24 Hct 41.9 % (42.0-52.0) L 08/30/24 Plt 196 K/uL (130-400) 08/30/24 Na 139 mmol/L (136-145) 08/30/24 K 4.2 mmol/L (3.5-5.1) 08/30/24 Cl 103 mmol/L (98-107) 08/30/24 CO2 28 mmol/L (21-32) 08/30/24 BUN 20 mg/dl (6-23) 08/30/24 Creat 0.99 mg/dl (0.6-1.4) 08/30/24 Glucose Level 169 mg/dl (70-99(Fasting)) H 08/30/24 PT 10.6 Seconds (9.0-12.0) 08/30/24 PTT 25 Seconds (21-31) 08/30/24 INR 1.0 (0.9-1.1) 08/30/24 Blood Type AB Positive 08/30/24 Antibody Screen NEGATIVE 08/30/24 Testing Laboratory Results HGBA1C (08/25/24): 6.7% Electrocardiogram Date: 08/30/24 SR with PACs at 76bpm. NS TWA. Chest X-Ray Date: 08/30/24 FINDINGS: No lines and tubes are seen. The cardiomediastinal silhouette is normal. The lungs are clear. No evidence of pleural effusion or pneumothorax. IMPRESSION: No acute chest disease. Echocardiogram Date: 07/22/20 EF 55 to 60%. Mild concentric LVH. LV wall motion is normal. No significant valvular disease. Stress Test Date: 04/15/23 Gated SPECT imaging reveals normal myocardial thickening and wall motion. LVEF 60%. Lexiscan nuclear cardiac stress test negative for ischemia.
[2024-09-23] MEDS: LR 500ML BOLUS, THEN 15ML/HR IV SCH (06:01)
[2024-09-23] MEDS: LR 60ML/HR IV SCH (06:01)
[2024-09-23] MEDS: FAMOTIDINE 20 MG TAB PO SCH (06:02)
[2024-09-23] MEDS: GABAPENTIN 300 MG CAP PO SCH (06:02)
[2024-09-23] MEDS: ACETAMINOPHEN 500 MG TAB PO SCH ×2 (06:03→15:38)
[2024-09-23] MEDS: dexAMETHasone**PF** 10 MG/ML VIAL IV SCH (06:03)
[2024-09-23] MEDS ORDERED: BUPIVACAINE 0.5 % 5 MG/1 ML PF 10ML VIAL ONE (06:15)
[2024-09-23] MEDS ORDERED: LIDOCAINE 2% 2 ML VIAL/AMP(20MG/ML) INFIL ONE (06:31)
[2024-09-23] MEDS ORDERED: DEXAMETHASONE SOD INJ 4 MG/ML VIAL ONE (06:31)
[2024-09-23] MEDS ORDERED: MIDAZOLAM HCL 1 MG/ML 2ML VIAL ONE (06:31)
[2024-09-23] MEDS ORDERED: PROPOFOL IV EMULSION 10 MG/ML 20 ML VIAL IV ONE ×3 (06:31→08:10)
[2024-09-23] MEDS ORDERED: ONDANSETRON INJ 2 MG/ML 2 ML VIAL ONE (06:31)
[2024-09-23] MEDS ORDERED: fentaNYL citrate PF 100 MCG/2 ML VIAL ONE (06:31)
--- NOTE | 2024-09-23 06:37 | History & Physical Bridge Note ---
Date of Service September 23, 2024 History & Physical Bridge Note I have examined the patient, reviewed the History & Physical and in the interval since the performance of the History & Physical I have noted the following changes of clinical significance: no changes noted
[2024-09-23] MEDS: TRANEXAMIC ACID 1,000 MG **IV Pre-op IV SCH (06:58)
[2024-09-23] MEDS ORDERED: ONDANSETRON INJ 2 MG/ML 2 ML VIAL IV PRN ×2 (07:05→11:04)
[2024-09-23] MEDS ORDERED: PROMETHAZINE HCL 6.25 MG in SODIUM CHLORIDE 0.9% 50 ML IV PRN (07:05)
[2024-09-23] MEDS ORDERED: fentaNYL citrate PF 100 MCG/2 ML VIAL IV PRN (07:05)
[2024-09-23] MEDS ORDERED: ePHEDrine sulfate 50 MG/ML AMP IV PRN (07:05)
[2024-09-23] MEDS ORDERED: ATROPINE SULFATE 0.1 MG/ML 10ML SYR IV PRN (07:05)
[2024-09-23] MEDS: ceFAZolin 2000MG 2,000 MG/15 ML SYR IV SCH ×2 (07:06→15:38)
[2024-09-23] MEDS ORDERED: KETAMINE HCL 10MG/ML SYR ONE (07:21)
[2024-09-23] MEDS: ORTHO JOINT ANESTHETIC ONE (07:40)
[2024-09-23] MEDS: ROPIV 0.5% 246mg, Ketorolac 30mg, EPINEPHrine 0.5mg in NSS INFIL SCH (07:56)
[2024-09-23] MEDS ORDERED: ePHEDrine sulfate 50 MG/5 ML SYR ONE (07:59)
[2024-09-23] MEDS: TRANEXAMIC ACID 1,000 MG **IV Intra-op IV SCH (08:18)
--- NOTE | 2024-09-23 08:21 | Operative Report ---
PG Post Operative Report Pre & Post Diagnosis Operation Date: 09/23/24 07:00 Pre-Op Diagnosis: Right Hip Osteoarthritis Post-Op Diagnosis: Right Hip Osteoarthritis I identified the patient and participated in the time-out.: Yes Procedure Operation Date: 09/23/24 07:00 Actual Procedures p Right Anterior Total Hip Arthroplasty(Right) - Jeison Jose DO Surgeon Jeison Jose DO Busboy Troy Conklin PA-C Estimated Blood Loss 150 Findings Consistent with Post-Op Diagnosis Specimens Right femoral head Description of Procedure Implants used I used a ZimmerBiomet total hip arthroplasty system with a size 4 standard offset Avenir Complete stem, a 58 mm G7 cup with a 25mm screw, an E1 polyethylene liner, a 40 mm ceramic head with a +3.5 neck. Anderson arrived at the hospital for the above procedure. He was seen in the preoperative holding area and the operative extremity was identified and signed. He was given a spinal anesthetic, a preoperative antibiotic, and TXA. He was then taken back to the operating room and laid on the table in the supine position. He was given basic sedation. The operative leg was secured to a Puristst leg positioner. The hip was then prepped and draped in sterile fashion. A timeout was done and the patient and the operative extremity was properly identified. An anterior approach was used. Dissection was taken down through the fascia and the tensor muscle belly was retracted laterally and the rectus was retracted medially. The circumflex vessels were identified and ligated. The capsule was then incised and tagged for later repair. The femoral neck was then cut and the femoral head was removed. The acetabulum was exposed. Time was spent doing a complete circumferential labral release. Sequential reaming of the acetabulum up to a size 57 reamer was done. Final reamings were done under fluoroscopy to ensure appropriate version. A Biomet 58 mm G7 cup was then impacted into place. A single 25 mm screw was placed. The E1 polyethylene liner was then snapped into place. Surrounding soft tissues were then injected with 100 cc of an orthopedic pain control cocktail. The proximal femur was then exposed. Sequential broaching up to a size 4 broach was done. Off that broach a size 40 head with a +3.5 neck was trialed. The hip was reduced and fluoroscopic images showed anatomic alignment of the implants in acceptable length. The broach was removed. The final size 4 standard offset Avenir Complete stem was then impacted into place. A ceramic 40 mm head with a +3.5 neck was then impacted onto the stem and the hip was reduced. Final fluoroscopic images showed anatomic alignment of the hip. The capsule was then closed with #1 Vicryl suture. A dilute betadyne lavage was then done for 3 minutes. The joint was then irrigated with normal saline solution. The fascia was closed with #1 PDS suture. Skin was closed with 2-0 Vicryl, caryn, and a Silverlon dressing. He was then transferred to a hospital bed and taken to the post anesthesia care unit in stable condition. He tolerated the procedure well. Troy Conklin PA-C, was present for the entire procedure. He was critical for patient positioning, prepping, draping, retraction exposure, wound closure and application of sterile dressing. I attest to the content of the Intraoperative Record and any orders documented therein. Any exceptions are noted below.
--- NOTE | 2024-09-23 09:05 | Fluoroscopy Report ---
FL hip RT 1V CLINICAL HISTORY: RIGHT ANTERIOR HIP ARTHROPLASTY COMPARISON STUDY: None FLUOROSCOPY TIME: 19 seconds FLUOROSCOPY IMAGES: 2 EXPOSURE DOSE: 2.2 mGy FINDINGS: Right hip prosthesis shows no hardware complication. IMPRESSION: Intraoperative fluoroscopy. ACT 112: Negative or not required by law. Electronically signed by: Doug Powers M.D. 09/23/2024 9:04 AM
--- NOTE | 2024-09-23 09:07 | XRay Report ---
XR hip 1V RT w pelvis CLINICAL HISTORY: IN PACU - Post Surgical TECHNIQUE: 1 view of the right hip and single frontal view of the pelvis were obtained. Comparison: Comparison is made to right hip fluoroscopy 09/23/2024 FINDINGS: Patient is status post total hip arthroplasty with expected postsurgical changes including soft tissu e swelling and subcutaneous emphysema. IMPRESSION: Expected postoperative appearance status post placement of total hip arthroplasty. ACT 112: Negative or not required by law. Electronically signed by: Jeison Escalante M.D. 09/23/2024 9:06 AM
--- NOTE | 2024-09-23 10:51 | Anesthesiology Progress Note ---
Date of Service September 23, 2024 Anesthesia Post Procedure Vital Signs Vital Signs: Temp Pulse Pulse Resp BP BP Pulse Ox 09/23/24 10:40 65 16 121/75 97 09/23/24 10:30 65 22 125/70 93 09/23/24 10:20 64 14 122/69 94 09/23/24 10:10 62 20 114/66 93 09/23/24 10:00 65 12 126/71 94 09/23/24 09:50 63 16 122/73 96 09/23/24 09:40 36.4 C L 65 20 123/74 97 09/23/24 09:30 63 18 120/69 97 09/23/24 09:20 64 12 122/69 97 09/23/24 09:10 62 20 124/71 96 09/23/24 09:00 66 14 117/65 97 09/23/24 08:50 70 20 120/69 97 09/23/24 08:40 36.6 C 88 14 110/60 92 09/23/24 05:38 36.8 C 68 18 136/90 98 O2 Del Method O2 Flow Rate 09/23/24 10:40 Room Air 09/23/24 10:30 Room Air 09/23/24 10:20 Room Air 09/23/24 10:10 Room Air 09/23/24 10:00 Room Air 09/23/24 09:50 Room Air 09/23/24 09:40 Room Air 09/23/24 09:30 Room Air 09/23/24 09:20 Room Air 09/23/24 09:10 Room Air 09/23/24 09:00 Room Air 09/23/24 08:50 Oxymask 4 09/23/24 08:40 Oxymask 8 09/23/24 05:38 Room Air Pain Intensity Right Hip: Pain Intensity: 6 Transfer of Care Handoff Completed per policy Notes Mental Status: alert / awake / arousable Patient Amnestic to Procedure: Yes Nausea / Vomiting: adequately controlled Pain: adequately controlled Airway Patency, RR, SpO2: stable & adequate BP & HR: stable & adequate Hydration State: stable & adequate Neuraxial Anesthesia: was administered and sensory block is resolving Anesthetic Complications: no major complications apparent and Pt Satisfied with anesthetic care
[2024-09-23] MEDS ORDERED: HYDROmorphone INJ 0.5 MG/0.5 ML SYR IV PRN (11:04)
[2024-09-23] MEDS ORDERED: METOPROLOL SUCC 25MG EXT REL TAB PO PRN (11:04)
[2024-09-23] MEDS ORDERED: METOCLOPRAMIDE HCL INJ 5 MG/ML 2 ML VIAL IV PRN (11:04)
[2024-09-23] MEDS ORDERED: bisacodyL 10 MG SUPP PR PRN (11:04)
[2024-09-23] MEDS ORDERED: MAGNESIUM HYDROXIDE SUSP 30 ML UDC PO PRN (11:04)
[2024-09-23] MEDS ORDERED: NALOXONE HCL 0.4 MG/1 ML VIAL/CARP IV PRN (11:04)
[2024-09-23] MEDS ORDERED: PHARMACY GLYCEMIC MGMT CONSULT PRN (11:04)
[2024-09-23] MEDS ORDERED: metFORMIN HCL 500 MG TAB PO SCH (11:04)
[2024-09-23] MEDS ORDERED: NIRMATRELVIR RITONAVIR PO SCH (11:04)
[2024-09-23] MEDS ORDERED: GLUCOSE 40% GEL 15 GM TUBE PO PRN (11:15)
[2024-09-23] MEDS ORDERED: DEXTROSE 50% 50 ML SYRINGE IV PRN (11:15)
[2024-09-23] MEDS ORDERED: GLUCAGON FOR INJ 1 MG VIAL SQ PRN (11:15)
[2024-09-23] MEDS ORDERED: CARBOHYDRATES FOR HYPOGLYCEMIA PO PRN (11:15)
[2024-09-23] MEDS ORDERED: GLUCOSE 10 TAB/TUBE PO PRN (11:15)
--- NOTE | 2024-09-23 11:47 | Pharmacy Report ---
Pharmacy Glycemic Short Note 2 - Date of Service September 23, 2024 - Glycemic Short BSG Results (Last 24 hours): 09/23/24 09/23/24 09/23/24 05:40 08:43 11:35 POC Glucose 127 H 165 H 164 H OUTPATIENT ANTIDIABETIC REGIMEN: * metformin 1 g PO daily HbA1c: ordered for 09/23/24 ASSESSMENT: * EVERARDO is a 64 year old male POD #0 s/p right total hip arthroplasty * Received 10 mg IV dexamethasone in OR, no ongoing steroids ordered * Preop blood sugar of 127 mg/dL, postop blood sugar on floor of 164 mg/dL * Will be aggressive on POD #0 to cover steroids PLAN FOR INPATIENT GLYCEMIC CONTROL: * Hold outpatient oral diabetes medications * Basal insulin * Lantus 30 units SQ x 1 (~0.3 unit/kg of adjusted body weight) * Reassess need for basal in AM * Bolus insulin * NovoLog per scale ACHS or Q6hrs while NPO * Goal Range: Low 110 mg/dL - High 140 mg/dL * Correction Factor: 15 mg/dL/unit * Nutritional / Prandial insulin per carb ratio of 1 unit per 5 grams CHO consumed
[2024-09-23] MEDS: KETOROLAC TROMETHAMINE 15 MG/ML VIAL IV SCH (12:41)
[2024-09-23] MEDS: DOCUSATE SODIUM 100 MG CAP PO SCH (12:41)
[2024-09-23] MEDS: LANTUS PER UNIT CHARGE SC ONE (13:13)
[2024-09-23] MEDS: INSULIN ASPART PER UNIT CHARGE SC SCH (13:14)
[2024-09-23 14:08] VITALS: RESP 16
[2024-09-23] MEDS ORDERED: ceFAZolin 1000MG 1,000 MG/7.5 ML SYR IV SCH (15:00)
[2024-09-23] MEDS: MULTIVITAMIN TAB PO SCH (15:38)
[2024-09-23] MEDS: ASPIRIN 81 MG ECTAB PO SCH (15:38)
[2024-09-23] MEDS: SENNA 8.6 MG TAB PO SCH (20:12)
[2024-09-24 03:53] VITALS: O2SAT 98
--- NOTE | 2024-09-24 07:01 | Orthopedic Progress Note ---
Date of Service September 24, 2024 Assessment & Plan (1) Status post right hip replacement: Overall he is doing very well. He is not having much pain in the right hip. He will be seen by physical therapy today for ambulation and range of motion exercises. He is on aspirin for DVT prophylaxis. He can be discharged to home later today. He will follow-up orthopedics in 2 weeks. Subjective Anderson was seen and examined at bedside this morning. Overall he is doing very well. He is not having much pain in the right hip. He has been up and ambulating to the bathroom. He has no complaints.. Review of Systems All systems reviewed & are unremarkable except as noted in HPI & below. Physical Exam On physical exam of the right hip, the dressing is clean and dry. His leg is out full extension. He has active dorsiflexion plantarflexion of his right ankle.. Results & Data Results & Data Laboratory Results . Diagnostic Findings Postoperative x-rays of the right hip show the prosthesis to be in anatomic alignment without any evidence of fracture, dislocation, or loosening.. PG Care Time/CCT Total # of Minutes Spent Total Time Spent with Patient: Total time spent is greater than 50% in coordination of care (as documented) at patient's floor/unit and/or counseling patient: Coding Level of Care Code 40003 Post Operative Follow-Up Diagnoses Status post right hip replacement Z96.641
--- NOTE | 2024-09-24 07:02 | Discharge Summary ---
Date of Service September 24, 2024 Principal Diagnosis Same as "Discharge Diagnosis" noted below under Discharge Instructions. Discharge Exam On physical exam of the right hip, the dressing is clean and dry. His leg is out full extension. He has active dorsiflexion plantarflexion of his right ankle.. Discharge Data Procedures Performed Operation Date: 09/23/24 07:00 Actual Procedures p Right Anterior Total Hip Arthroplasty(Right) - Jeison Jose, Ordered Studies 09/23/24 07:00 FL hip RT 1V Routine Hospital Course (1) Status post right hip replacement: On September 23, 2024 Anderson arrived at [facility] and underwent a right hip replacement without complication. He had a spinal anesthetic. Postoperatively he was started on aspirin for DVT prophylaxis and transferred to the general orthopedic floors. His hospital course was uneventful. On postop day #1, his vital signs were stable and his pain was well-controlled. He was able to participate well with physical therapy doing ambulation and range of motion exercises. He was then discharged to home. He will follow-up with orthopedics in 2 weeks. PG Care Time/CCT Total # of Minutes Spent Total Time Spent with Patient: Total time spent is greater than 50% in coordination of care (as documented) at patient's floor/unit and/or counseling patient: Discharge Plan Discharge Items Patient Disposition: Home - Self-Care Reason For Visit: Right Hip Arthritis Discharge Diagnosis: Right hip replacement Activity: Per Instructions section Non-emergency contact: Surgeon Call non-emergency contact if: your wound has increased redness and your wound has increased drainage Follow-up/Referrals: Moustapha Wall MD [Primary Care Provider] - Diet: Regular Ambulatory Orders: Hemoglobin A1C (Glycosylated) (Routine) Timeframe: 1 Day Location: Determined by Patient Ordered By: Cristina Mcknight Attending Provider Instructions: Activity and Therapy Recommendations: * If you are using [facility] then therapy will be provided at your home until they feel you have accomplished all of your goals. * If you are using [facility] then Physical Therapy will be provided until they feel you are ready to start Outpatient Physical Therapy. * If you are not using home therapy then Outpatient Physical Therapy should start about 3-5 days from your day of surgery. Therapy will last about 6-10 weeks * You were shown a series of exercises in the hospital. Do these exercises three times each day including the exercises you were shown in physical therapy. * Get up and walk several times each day.~ For the first four weeks, try not to stand or walk for more than one hour at a time. If you do stand or walk for more than one hour, you will not hurt anything, but your leg will likely swell.~~ * As you feel comfortable, you may change from the walker or crutches to a cane and~then to independent walking. Medications: * Narcotic You will likely be sent home from the hospital with a prescription for the narcotic pain medication that worked best throughout your stay. * Cefadroxil -take the antibiotic twice a day for 10 days to help prevent infection. * Aspirin Most patients will be required to take Aspirin 81mg twice a day for 6 weeks after surgery. This is obtained [id number] and a prescription is not necessary. * Other medications may be prescribed for specific circumstances. If you have any questions, please call the office at . * Resume previous home medications unless otherwise instructed TEDs/Elastic Stockings: The white elastic stockings help limit swelling and prevent blood clots from forming in your legs. The more you wear them, the more they work. Wear them for six weeks. Dressing Care: Leave the Silverlon dressing in place for 7 days. After 7 days you may remove the dressing. If the incision is not draining then you may leave the caryn open to air. If there is a little bit of drainage or if the caryn are getting stuck on your clothing then cover the incision with a dry dressing. The caryn will be removed at your 2 week follow-up appointment. Showering: You may shower with the Silverlon dressing in place. Do not let the shower spray hit the dressing directly. Pat the Silverlon dressing dry. If the dressing becomes wet underneath, then simply remove the dressing. Keep the incision dry until you are 7 days out from the day of surgery. After 7 days you may remove the Silverlon dressing and shower with the caryn exposed. Let soapy water run over the caryn and pat them dry. Do not scrub or soak the incision. Diet: You may resume your previous diet. Things To Watch For: * Drainage from the incision site that occurs more than one week after your surgery. * Increased redness at the incision site. * Fever above 102 degrees Fahrenheit. * Unusual chest pain or shortness of breath. * Call [facility] at with any of the above problems Follow-Up Visit: Follow-up with Dr. Jose's office 2-3 weeks after your day of surgery. We will remove your caryn and answer any questions. If you have any additional questions or concerns, Dr Jose is usually in the office at the same time and will be available An appointment was probably scheduled when you signed-up for surgery in the office. If you have any questions call Office Instructions: More detailed instructions as well as Frequently Asked Questions were provided in a folder by our office when you signed-up for surgery. Please review these instructions when you get home. If you have any further questions or concerns, please feel free to call the office at [phone] Pending Studies at Discharge: No Stand-Alone Forms: My [facility], Smoking Cessation Medications and DC Order Prescriptions: New cefadroxil 500 mg capsule 500 mg PO BID 10 Days Qty: 20 0RF oxycodone 5 mg tablet 5 mg PO Q6H PRN (Reason: pain) Qty: 30 0RF aspirin 81 mg Tablet,Delayed Release (Dr/Ec) 81 mg PO BID 42 Days Qty: 84 0RF Continued metoprolol succinate 25 mg tablet extended release 24 hr 25 mg PO DAILY PRN (Reason: heart palpitations ) Patient Comments: only as needed. Patient as not taken in a while Paxlovid 300 mg (150 mg x 2)-100 mg tablets,dose pack See Rx Instructions PO .COMPLEX Qty: 30 0RF Patient Comments: Patient never took. COVID back in may Rx Instructions: take TWO 150 mg tablets of nirmatrelvir with ONE 100 mg tablet of ritonavir twice daily for 5 days PO metformin 1,000 mg Tablet 1,000 mg PO QAM ibuprofen 200 mg Capsule 200 mg PO Q6H PRN (Reason: Pain) naproxen 250 mg Tablet 250 mg PO BID PRN (Reason: Pain) aspirin 81 mg Tablet 81 mg PO DAILY Patient Comments: Patient states does not take polyethylene glycol 3350 [Miralax] 17 gram/dose Powder 17 g PO DAILY psyllium husk [Metamucil] 0.4 gram Capsule 0.4 g PO HS PRN (Reason: Constipation) Discontinued hydrocodone-acetaminophen [Vicodin] 5-300 mg Tablet 1 tab PO BID PRN (Reason: Severe Pain (Scale Score 7-10)) Patient Comments: Has not taken for at least 1 month Discharge Orders: Discharge Order (Routine); Ordered 09/24/24 Ordered By: Jeison Jose Admission Data Admit Date/Time: 09/23/24 08:46 Attending Provider: Jeison Jose Admit Provider: Jeison Jose Primary Care Provider: Moustapha Wall
[2024-09-24 07:34] LABS: Estimated Average Glucose 134 mg/dl; Hemoglobin A1C 6.3 % (4.5-5.6)
[2024-09-24 07:37] VITALS: PULSE 66; TEMP 98.4
[2024-09-24] MEDS: traMADol HCL 50 MG TABLET PO PRN (09:46)
[2024-09-24 11:07] VITALS: BP 136/90
[2024-09-24] MEDS: oxyCODONE HCL IR 5 MG TAB (IMMEDIATE RELEASE) PO PRN (12:13)
== END 2024-09-24 12:44 | disposition home or self-care (01) ==
LOC: ASU 05:02 → 3E 05:02

== ENCOUNTER 2025-07-28 05:24 | Inpatient (IN) ==
--- NOTE | 2025-06-22 10:13 | PAT Medication Instructions ---
Medication Instructions Date of Service June 22, 2025 Home Medications metoprolol succinate 25 mg tablet,extended release 24 hr 25 mg PO QAM naproxen 250 mg tablet 250 mg PO BID PRN Pain polyethylene glycol 3350 17 gram/dose oral powder (Miralax) 17 g PO DAILY PRN Constipation psyllium husk 0.4 gram capsule (Metamucil) 0.4 g PO HS PRN Constipation acetaminophen 500 mg tablet 1,000 mg PO Q6H PRN Pain amoxicillin 500 mg capsule 500 mg PO UD PRN dental procedures metformin 500 mg tablet,extended release 24 hr 1,000 mg PO QAM Continue as directed amoxicillin 500 mg capsule 500 mg PO UD PRN dental procedures (if needed) ASK your surgeon for instructions naproxen 250 mg tablet 250 mg PO BID PRN Pain DO NOT take the morning of surgery polyethylene glycol 3350 17 gram/dose oral powder (Miralax) 17 g PO DAILY PRN Constipation metformin 500 mg tablet,extended release 24 hr 1,000 mg PO QAM Take morning of surgery With a small sip of water, OTHERWISE NOTHING TO EAT OR DRINK AFTER MIDNIGHT: metoprolol succinate 25 mg tablet,extended release 24 hr 25 mg PO QAM acetaminophen 500 mg tablet 1,000 mg PO Q6H PRN Pain (if needed) Take evening before surgery polyethylene glycol 3350 17 gram/dose oral powder (Miralax) 17 g PO DAILY PRN Constipation (if needed) psyllium husk 0.4 gram capsule (Metamucil) 0.4 g PO HS PRN Constipation (if needed) acetaminophen 500 mg tablet 1,000 mg PO Q6H PRN Pain (if needed) Other Notes If you have any questions please call us at [phone] or [phone] or [phone] or [phone]
--- NOTE | 2025-06-28 10:48 | Anesthesiology Consultation ---
Date of Service June 28, 2025 Assessment & Plan (1) Encounter for pre-operative examination: Plan - cardiology f/u notation 06/26/25 [facility]: "...no sustained arrhythmias and no atrial fibrillation were observed. There were occasional ventricular ectopy (early beats) which occurred as often as every other beat at times and correlated with symptoms. Continue metoprolol succinate and report any worsening symptoms. Would recommend adding Mag-Ox 400 mg daily..." - check BSG am DOS. - cardiology clearance 06/07/25 [facility]: "...paroxysmal atrial fibrillation...experiences atrial fibrillation regularly...fluttering...no dizzy spells or lightheadedness...place heart monitor for one week...no contraindication for hip surgery as currently planned..." - Outpatient joint assessment: Patient is currently scheduled for inpatient pathway. If re-evaluated and patient/surgeon requests outpatient pathway, patient is not ideal candidate for outpatient joint program. Chart Review Chart Review: Acceptable Risk for Surgery and Patient seen in Pre Admission Testing Teaching & Discussion Pre-Anesthesia Teaching/Discussion Notes: Instructed NPO after midnight before surgery, except medications with 15 cc of water. Medication instructions provided according to the PAT guidelines. History Surgery Operation Date: 07/28/25 07:00 Proposed Procedures p Left Total Hip Arthroplasty Anterior - Jeison Jose DO Height/Weight Height: 6 ft 2 in Weight: 113.4 kg Allergies Allergy/AdvReac Type Severity Reaction Status Date / Time No Known Allergies Allergy Verified 06/22/25 09:01 Medications Home Medications Medication Instructions Recorded Confirmed Last Taken metoprolol succinate 25 mg 25 mg PO QAM 05/29/24 06/22/25 Unknown tablet,extended release 24 hr naproxen 250 mg tablet 250 mg PO BID PRN Pain 09/15/24 06/22/25 09/17/24 09:00 polyethylene glycol 3350 17 17 g PO DAILY PRN Constipation 09/15/24 06/22/25 Unknown gram/dose oral powder (Miralax) psyllium husk 0.4 gram capsule 0.4 g PO HS PRN Constipation 09/15/24 06/22/25 09/22/24 09:00 (Metamucil) acetaminophen 500 mg tablet 1,000 mg PO Q6H PRN Pain 06/22/25 06/22/25 Unknown amoxicillin 500 mg capsule 500 mg PO UD PRN dental procedures 06/22/25 06/22/25 Unknown metformin 500 mg tablet,extended 1,000 mg PO QAM 06/22/25 06/22/25 Unknown release 24 hr Past Medical History Medical History (Updated 06/28/25 @ 10:55 by Nicki Mace PA-C) Diabetes NIDDM Hearing loss chronic History of COVID-19 2019- hospitalized ([facility]), given monoclonal antibodies 05/29/2024- no hospitalization, lingering fatigue and brain fog Obesity Osteoarthritis Paroxysmal atrial fibrillation Follows with S cardio Patient denies h/o stroke, seizures, heart attack, heart failure, HTN, or blood clots/DVTs. Exercise / Class Metabolic Activity II 4-5 Yardwork/Stairs/Walk up hill (denies chest discomfort or shortness of breath with one flight of stairs) Past Surgical History Surgical History (Updated 06/29/25 @ 08:41 by Nicki Mace PA-C) History of placement of ear tubes as child History of postoperative nausea and vomiting after hernia repair ~2004 Hx of colonoscopy age 61 Hx of hernia repair (2004) Hx of oral surgery Status post right hip replacement (10/2024) Past Anesthesia History No Hx of Anesthesia Complications and No Family Hx of Anesthesia Complications History of PONV History of PONV and Hx of Motion Sickness Social History Smoking Status: Former smoker Do You Dip or Chew Tobacco: No Smoking End Date: 11-12 years ago Hx Alcohol Use: Yes Alcohol type: hard liquor alcohol intake frequency: a few times a week Hx Substance Use: No substance use type: does not use Review of Systems Occasional snoring, denies witnessed apneas. Patient denies chest pain, shortness of breath, dyspnea on exertion, fever, chills, cough, wheezing, or palpitations. Physical Exam Vital Signs Vitals BP 124/78 P 60 TEMP 98.3 SP02 98% on RA RESP 18 Physical Patient resting comfortably in chair in no acute distress, alert and oriented, responding appropriately throughout visit Full cervical extension range of motion without pain TMD 3.5 finger breadths Mallampati Score 3 Dentition: several caps/crowns; denies chipped or loose teeth, implants or bridges Lungs: normal respiratory effort. Good air movement, clear throughout to auscultation, no adventitious breath sounds Cardiac: irregularly irregular rhythm, no murmurs noted Carotid arteries: negative bruit bilat Lab Results Anesthesia Preop Results Results Anesthesia Widget: WBC 7.64 K/ul (4.8-10.8) 06/28/25 Hgb 14.1 g/dl (14.0-18.0) 06/28/25 Hct 43.3 % (42.0-52.0) 06/28/25 Plt 194 K/uL (130-400) 06/28/25 Na 139 mmol/L (136-145) 06/28/25 K 4.2 mmol/L (3.5-5.1) 06/28/25 Cl 104 mmol/L (98-107) 06/28/25 CO2 31 mmol/L (21-32) 06/28/25 BUN 18 mg/dl (6-23) 06/28/25 Creat 0.94 mg/dl (0.6-1.4) 06/28/25 Glucose Level 123 mg/dl (70-99(Fasting)) H 06/28/25 PT 10.7 Seconds (9.0-12.0) 06/28/25 PTT 24 Seconds (21-31) 06/28/25 INR 1.0 (0.9-1.1) 06/28/25 HA1c 6.4 % (4.5-5.6) H 06/28/25 Blood Type AB Positive 06/28/25 Antibody Screen NEGATIVE 06/28/25 Testing Electrocardiogram Date: 06/07/25 NSR, rate 69 bpm T wave abnormality, consider inferior ischemia Inverted T waves have replaced nonspecific T wave abnormality in inferior leads when compared with 07/14/2023 EKG Chest X-Ray Date: 08/30/24 No lines and tubes are seen. The cardiomediastinal silhouette is normal. The lungs are clear. No evidence of pleural effusion or pneumothorax. IMPRESSION: No acute chest disease. Echocardiogram Date: 07/22/20 EF 55-60% Mild cLVH Normal LV wall motion Grossly normal valvular structure and function Stress Test Date: 04/15/23 MPHR 75% Normal myocardial thickening and wall motion EF 68% Negative for ischemia Other Testing Cardiac event monitor 06/07/25 Sinus rhythm HR: min 51, avg 68, max 185 bpm 3 ventricular tachycardia runs, fastest 4 beats with max rate of 185 bpm; longest 9 beats at 110 bpm 3 supraventricular tachycardia runs occurred, fastest 5 beats with max 150 bpm; longest 12 beats with max 101 bpm Occasional isolated VEs Rare isolated VEs and VE couplets Ventricular bigeminy and trigeminy were present
--- NOTE | 2025-07-26 15:21 | History & Physical Report ---
Date of Service July 26, 2025 Assessment & Plan (1) Osteoarthritis of left hip: We will proceed with a left anterior total of arthroplasty. Postoperatively, he will be started on aspirin for DVT prophylaxis and kept overnight in the hospital for postop medical management. He plans to [facility] after discharge. History of Present Illness Chief Complaint: Osteoarthritis of the left hip. Primary Care Provider: Moustapha Wall MD Anderson is a pleasant 65-year-old male who has been dealing with chronic increasing left hip and groin pain. X-rays and clinical exam have been diagnostic for advanced arthritis of the left hip. He has a history of a right hip replacement in the past and has done very well with that. He would like to proceed with a left anterior total of arthroplasty.. Allergies Allergy/AdvReac Type Severity Reaction Status Date / Time No Known Allergies Allergy Verified 06/22/25 09:01 Home Medications Medication Instructions Recorded Confirmed Type metoprolol succinate 25 mg 25 mg PO QAM 05/29/24 06/22/25 History tablet,extended release 24 hr naproxen 250 mg tablet 250 mg PO BID PRN Pain 09/15/24 06/22/25 History polyethylene glycol 3350 17 17 g PO DAILY PRN Constipation 09/15/24 06/22/25 History gram/dose oral powder (Miralax) psyllium husk 0.4 gram capsule 0.4 g PO HS PRN Constipation 09/15/24 06/22/25 History (Metamucil) acetaminophen 500 mg tablet 1,000 mg PO Q6H PRN Pain 06/22/25 06/22/25 History amoxicillin 500 mg capsule 500 mg PO UD PRN dental procedures 06/22/25 06/22/25 History metformin 500 mg tablet,extended 1,000 mg PO QAM 06/22/25 06/22/25 History release 24 hr Past Med/Surg History Problem List Strain of knee and leg, right Osteoarthritis of left hip Osteoarthritis of right hip Medical History Hearing loss chronic Obesity Osteoarthritis Diabetes NIDDM Paroxysmal atrial fibrillation Follows with S cardio History of COVID-2019- hospitalized ([facility]), given monoclonal antibodies 05/29/2024- no hospitalization, lingering fatigue and brain fog Surgical History Status post right hip replacement (10/2024) History of postoperative nausea and vomiting after hernia repair ~2004 Hx of colonoscopy age 61 Hx of oral surgery History of placement of ear tubes as child Hx of hernia repair (2004) Social History Smoking Status: Former smoker Second Hand Exposure: No; Do You Dip or Chew Tobacco: No; Hx Alcohol Use: Yes Alcohol type: hard liquor Hx Substance Use: No Preferred Language: Malay Communication Ability: Effective Cmm Operator Required: No Beliefs That Will Affect Care: None Current Living Situation: Spouse Feels Safe at Home: Yes Assistive Devices: Glasses Review of Systems All systems reviewed & are unremarkable except as noted in HPI & below. Physical Exam On physical exam of the left hip, he has decreased range of motion. He has pain with internal/external rotation. All of his pain is located in the groin.. Constitutional WD/WN, vitals as above Eyes PERRL, conjunctivae normal, anicteric sclerae ENMT external ear and nose normal, oropharynx normal Neck trachea midline, no thyromegaly Respiratory normal respiratory effort, lungs clear to auscultation Cardiovascular RRR, no murmur, no edema Gastrointestinal (Abdomen) normal bowel sounds, soft, nontender, no hepatosplenomegaly Skin no rashes, warm and dry Psychiatric A+Ox3, euthymic affect Results & Data Results & Data Laboratory Results . Diagnostic Findings . PG Care Time/CCT Total # of Minutes Spent Total Time Spent with Patient: Total time spent is greater than 50% in coordination of care (as documented) at patient's floor/unit and/or counseling patient: Coding Level of Care Code None Diagnoses Osteoarthritis of left hip M16.12
[2025-07-28] MEDS: LR 500ML BOLUS, THEN 15ML/HR IV SCH (06:13)
[2025-07-28] MEDS: ACETAMINOPHEN 500 MG TAB PO SCH ×2 (06:13→15:00)
[2025-07-28] MEDS: GABAPENTIN 300 MG CAP PO SCH (06:14)
[2025-07-28] MEDS: dexAMETHasone**PF** 10 MG/ML VIAL IV SCH (06:14)
[2025-07-28] MEDS: LR 60ML/HR IV SCH (06:14)
[2025-07-28] MEDS: FAMOTIDINE 20 MG TAB PO SCH (06:14)
[2025-07-28] MEDS ORDERED: ROPIVACAINE 0.5% 5 MG/ML 30 ML VIAL ONE (06:25)
[2025-07-28] MEDS ORDERED: ATROPINE SULFATE 0.1 MG/ML 10ML SYR IV PRN (06:32)
[2025-07-28] MEDS ORDERED: KETOROLAC 30 MG/ML VIAL IV PRN (06:32)
[2025-07-28] MEDS ORDERED: ONDANSETRON INJ 2 MG/ML 2 ML VIAL IV PRN (06:32)
[2025-07-28] MEDS ORDERED: HYDROmorphone INJ 1 MG/ML SYRINGE IV PRN (06:32)
[2025-07-28] MEDS ORDERED: PROMETHAZINE HCL 6.25 MG in SODIUM CHLORIDE 0.9% 50 ML IV PRN (06:32)
[2025-07-28] MEDS ORDERED: MIDAZOLAM HCL 1 MG/ML 2ML VIAL ONE (06:33)
--- NOTE | 2025-07-28 06:39 | History & Physical Bridge Note ---
Date of Service July 28, 2025 History & Physical Bridge Note I have examined the patient, reviewed the History & Physical and in the interval since the performance of the History & Physical I have noted the following changes of clinical significance: no changes noted
[2025-07-28] MEDS ORDERED: PROPOFOL IV EMULSION 10 MG/ML 20 ML VIAL IV ONE (06:44)
[2025-07-28] MEDS: TRANEXAMIC ACID 1,000 MG **IV Pre-op IV SCH (06:44)
[2025-07-28] MEDS ORDERED: DEXAMETHASONE SOD INJ 4 MG/ML VIAL ONE (06:44)
[2025-07-28] MEDS ORDERED: ONDANSETRON INJ 2 MG/ML 2 ML VIAL ONE (06:44)
[2025-07-28] MEDS: ROPIV 0.5% 246mg, Ketorolac 30mg, EPINEPHrine 0.5mg in NSS INFIL SCH (07:24)
[2025-07-28] MEDS: ORTHO JOINT ANESTHETIC ONE (07:24)
[2025-07-28] MEDS ORDERED: ePHEDrine sulfate 50 MG/5 ML SYR ONE (07:28)
--- NOTE | 2025-07-28 08:14 | Operative Report ---
PG Post Operative Report Pre & Post Diagnosis Operation Date: 07/28/25 07:00 Pre-Op Diagnosis: Left Hip Arthritis Post-Op Diagnosis: Left Hip Arthritis I identified the patient and participated in the time-out.: Yes Procedure Operation Date: 07/28/25 07:00 Actual Procedures p Left Anterior Total Hip Arthroplasty(Left) - Jeison Jose DO Surgeon Jeison Jose DO Service Vehicle Operator Troy Conklin PA-C Estimated Blood Loss 30 Findings Consistent with Post-Op Diagnosis Specimens Left femoral head Description of Procedure Implants used I used a ZimmerBiomet total hip arthroplasty system with a size 4 standard offset Z1 stem, a 56 mm G7 cup, an E1 polyethylene liner, a 40 mm ceramic head with a +3.5 neck. Anderson arrived at the hospital for the above procedure. He was seen in the preoperative holding area and the operative extremity was identified and signed. He was given a spinal anesthetic, a preoperative antibiotic, and TXA. He was then taken back to the operating room and laid on the table in the supine position. He was given basic sedation. The operative leg was secured to a Puristst leg positioner. The hip was then prepped and draped in sterile fashion. A timeout was done and the patient and the operative extremity was properly identified. An anterior approach was used. Dissection was taken down through the fascia and the tensor muscle belly was retracted laterally and the rectus was retracted medially. The circumflex vessels were identified and ligated. The capsule was then incised and tagged for later repair. The femoral neck was then cut and the femoral head was removed. The acetabulum was exposed. Time was spent doing a complete circumferential labral release. Sequential reaming of the acetabulum up to a size 55 reamer was done. Final reamings were done under fluoroscopy to ensure appropriate version. A Biomet 56 mm G7 cup was then impacted into place. The E1 polyethylene liner was then snapped into place. Surrounding soft tissues were then injected with 100 cc of an orthopedic pain control cocktail. The proximal femur was then exposed. Sequential broaching up to a size 4 broach was done. Off that broach a size 40 head with a +3.5 neck was trialed. The hip was reduced and fluoroscopic images showed anatomic alignment of the implants in acceptable length. The broach was removed. The final size 4 standard offset Z1 stem was then impacted into place. A ceramic 40 mm head with a +3.5 neck was then impacted onto the stem and the hip was reduced. Final fluoroscopic images showed anatomic alignment of the hip. The capsule was then closed with #1 Vicryl suture. A dilute betadyne lavage was then done for 3 minutes. The joint was then irrigated with normal saline solution. The fascia was closed with #1 PDS suture. Skin was closed with 2-0 Vicryl, [place] Zipline, and a Silverlon dressing. He was then transferred to a hospital bed and [facility] condition. He tolerated the procedure well. Troy Conklin PA-C, was present for the entire procedure. He was critical for patient positioning, prepping, draping, retraction exposure, wound closure and application of sterile dressing. I attest to the content of the Intraoperative Record and any orders documented therein. Any exceptions are noted below.
--- NOTE | 2025-07-28 09:16 | XRay Report ---
XR hip 1V LT w pelvis CLINICAL HISTORY: IN PACU - Post Surgical COMPARISON: 09/23/2024 FINDINGS: Bilateral hip prostheses show no hardware complication. There is expected soft tissue gas on the left. IMPRESSION: Unremarkable postoperative exam. ACT 112: Negative or not required by law. Electronically signed by: Doug Powers M.D. 07/28/2025 9:15 AM
[2025-07-28] MEDS ORDERED: NALOXONE HCL 0.4 MG/1 ML VIAL/CARP IV PRN (10:05)
[2025-07-28] MEDS ORDERED: HYDROmorphone INJ 0.5 MG/0.5 ML SYR IV PRN (10:05)
[2025-07-28] MEDS ORDERED: PHARMACY GLYCEMIC MGMT CONSULT PRN (10:05)
[2025-07-28] MEDS: SODIUM CHLORIDE 0.9% 1,000 ML IV SCH (10:47)
[2025-07-28] MEDS: DOCUSATE SODIUM 100 MG CAP PO SCH (10:47)
[2025-07-28] MEDS: MULTIVITAMIN TAB PO SCH (10:57)
--- NOTE | 2025-07-28 11:04 | Anesthesiology Progress Note ---
Date of Service July 28, 2025 Anesthesia Post Procedure Vital Signs Vital Signs: Temp Pulse Pulse Resp BP Pulse Ox O2 Del Method 07/28/25 10:30 36.5 C 60 16 129/76 95 Room Air 07/28/25 10:00 36.4 C L 61 18 127/76 100 Room Air 07/28/25 09:50 58 L 14 128/70 93 Room Air 07/28/25 09:35 56 L 12 124/72 95 Room Air 07/28/25 09:25 59 L 12 125/69 94 Room Air 07/28/25 09:15 57 L 16 122/68 94 Room Air 07/28/25 09:05 58 L 18 115/68 98 Room Air 07/28/25 08:55 64 16 122/76 100 Oxymask 07/28/25 08:49 36 C L 70 12 116/66 97 Oxymask 07/28/25 05:51 37.1 C 65 18 139/87 98 Room Air O2 Flow Rate 07/28/25 10:30 07/28/25 10:00 07/28/25 09:50 07/28/25 09:35 07/28/25 09:25 07/28/25 09:15 07/28/25 09:05 07/28/25 08:55 6 07/28/25 08:49 6 07/28/25 05:51 Transfer of Care Handoff Completed per policy Notes Mental Status: alert / awake / arousable Patient Amnestic to Procedure: Yes Nausea / Vomiting: adequately controlled Pain: adequately controlled Airway Patency, RR, SpO2: stable & adequate BP & HR: stable & adequate Hydration State: stable & adequate Anesthetic Complications: no major complications apparent
[2025-07-28] MEDS ORDERED: CARBOHYDRATES FOR HYPOGLYCEMIA PO PRN (12:00)
[2025-07-28] MEDS ORDERED: DEXTROSE 50% 50 ML SYRINGE IV PRN (12:00)
[2025-07-28] MEDS ORDERED: GLUCAGON FOR INJ 1 MG VIAL SQ PRN (12:00)
[2025-07-28] MEDS ORDERED: GLUCOSE 10 TAB/TUBE PO PRN (12:00)
[2025-07-28] MEDS ORDERED: GLUCOSE 40% GEL 15 GM TUBE PO PRN (12:00)
[2025-07-28] MEDS: KETOROLAC TROMETHAMINE 15 MG/ML VIAL IV SCH (12:17)
[2025-07-28] MEDS: INSULIN ASPART PER UNIT CHARGE SC SCH (12:18)
--- NOTE | 2025-07-28 13:42 | Pharmacy Report ---
Pharmacy Glycemic Short Note 2 - Date of Service July 28, 2025 - Glycemic Short BSG Results (Last 24 hours): 07/28/25 07/28/25 07/28/25 05:44 08:41 11:34 POC Glucose 107 H 162 H 143 H OUTPATIENT ANTIDIABETIC REGIMEN: * metformin 1 gm po qam ASSESSMENT: * 65 year old s/p surgery, POD 0 - pharmacy consulted for glycemic management. Received IV dexamethasone preoperatively, anticipate steroid induced hype rglycemia. Postop BSG ~140 mg/dL - will start novolog now and add on basal for HS in case blood sugars trending upward. PLAN FOR INPATIENT GLYCEMIC CONTROL: * Hold outpatient oral diabetes medications * Basal insulin * Lantus 0-10 units HS if BSG >180 * Bolus insulin * NovoLog per scale ACHS or Q6hrs while NPO * Goal Range: Low 110 mg/dL - High 140 mg/dL * Correction Factor: 20 mg/dL/unit * Nutritional / Prandial insulin per carb ratio of 1 unit per 7 grams CHO consumed
--- NOTE | 2025-07-28 15:04 | Fluoroscopy Report ---
FL hip LT 1V CLINICAL HISTORY: LT ANTERIOR HIP COMPARISON STUDY: None FLUOROSCOPY TIME: 16 seconds FLUOROSCOPY IMAGES: 1 EXPOSURE DOSE: 2.6 mGy FINDINGS: Fluoroscopy was provided for left hip prosthesis. IMPRESSION: Intraoperative fluoroscopy. ACT 112: Negative or not required by law. Electronically signed by: Doug Powers M.D. 07/28/2025 3:03 PM
[2025-07-28] MEDS: LANTUS PER UNIT CHARGE SC SCH (21:32)
[2025-07-28] MEDS: SENNA 8.6 MG TAB PO SCH (21:33)
[2025-07-28] MEDS: ASPIRIN 81 MG ECTAB PO SCH (21:34)
--- NOTE | 2025-07-29 08:09 | Orthopedic Progress Note ---
Date of Service July 29, 2025 Assessment & Plan (1) Status post left hip replacement: Overall he is doing fairly well. He is not having much pain in the left hip. He will be seen by physical therapy today for ambulation and range of motion exercises. He is on aspirin for DVT prophylaxis. He can be discharged to home later today if he passes physical therapy. He will follow-up with orthopedics in 2 weeks. Adryan Barron was seen and examined at bedside this morning. Overall is doing fairly well. He has been up and sit in a chair and has been walking some last night. He has no complaints.. Review of Systems All systems reviewed & are unremarkable except as noted in HPI & below. Physical Exam On physical exam of the left hip, the dressing is clean and dry. He has active dorsiflexion and plantarflexion of his left ankle. His quad is intact.. Results & Data Results & Data Laboratory Results . Diagnostic Findings Postoperative x-rays of the left hip show the prosthesis to be in anatomic alignment without any evidence of fracture, dislocation, or loosening.. PG Care Time/CCT Total # of Minutes Spent Total Time Spent with Patient: Total time spent is greater than 50% in coordination of care (as documented) at patient's floor/unit and/or counseling patient: Coding Level of Care Code 50201 Post Operative Follow-Up Diagnoses Status post left hip replacement Z96.642
[2025-07-29] MEDS: METOPROLOL SUCC 25MG EXT REL TAB PO SCH (08:15)
[2025-07-29] MEDS: ONDANSETRON INJ 2 MG/ML 2 ML VIAL IV PRN (09:41)
[2025-07-29] MEDS: MAGNESIUM HYDROXIDE SUSP 30 ML UDC PO PRN (21:19)
--- NOTE | 2025-07-30 07:18 | Orthopedic Progress Note ---
Date of Service July 30, 2025 Assessment & Plan (1) Status post left hip replacement: Overall he is doing a little bit better today. He still a little bit nauseous and dizzy. I will discontinue any 10 mg of oxycodone and make sure he is taking only 5 mg at a time. He is on aspirin for DVT prophylaxis. He will be seen by physical therapy today. If he passes physical therapy he can be discharged to home. If not, then we can keep him until tomorrow. Adryan Barron was seen and examined at bedside this morning. Overall he is doing fairly well. He was struggling yesterday with nausea and dizziness. He did not do well with therapy because of the dizziness. He was feeling a lot better last evening. He is feeling a little nauseous and dizzy this morning but not as bad as yesterday. He has no other complaints. He just had 2 oxycodone about 3 hours ago and he feels that may be affecting him.. Review of Systems All systems reviewed & are unremarkable except as noted in HPI & below. Physical Exam On physical exam of the left hip, the dressing is clean and dry. His leg is out in full extension.. Results & Data Results & Data Laboratory Results . Diagnostic Findings . PG Care Time/CCT Total # of Minutes Spent Total Time Spent with Patient: Total time spent is greater than 50% in coordination of care (as documented) at patient's floor/unit and/or counseling patient: Coding Level of Care Code 76260 Post Operative Follow-Up Diagnoses Status post left hip replacement Z96.642
[2025-07-30] MEDS: METOCLOPRAMIDE HCL INJ 5 MG/ML 2 ML VIAL IV PRN (13:45)
--- NOTE | 2025-07-31 08:11 | Hospitalist Consultation ---
<Statement entered by Andrés Dominguez, - 07/31/25 11:26> I have seen and examined the patient and have discussed the case with the advance practice provider. I have reviewed the advanced practitioner's documentation, and I agree with, and take responsibility for that plan of care. Patient with recurrence of his paroxysmal atrial fibrillation and this morning symptomatic with lightheadedness and dizziness. Suspect component of surgical procedure, anesthesia, Postoperative expected blood loss. Agree with increasing metoprolol Anticipate patient will need cardiology follow-up. May even need to be started on anticoagulation this hospitalization especially in setting of decreased mobility. Will consult cardiology. Concern rates may be difficult to control as his activity increases as well. I spent a total of 22 minutes coordinating, documenting, and providing care for this patient excluding time spent by another provider/QHP. Date of Consultation July 31, 2025 Assessment & Plan (1) Dizziness: (2) Atrial fibrillation with RVR: Patient is a 65-year-old male with past medical history significant for type 2 diabetes mellitus, dyslipidemia, paroxysmal atrial fibrillation and obesity who is being seen in consultation for evaluation of persistent dizziness s/p left ADRIANNA performed on 07/28/[address] Jose. Found to be in atrial fibrillation with RVR this morning. Known history of paroxysmal atrial fibrillation. [facility]. OP heart monitor x 1wk completed prior to surgery: no sustained arrhythmias or atrial fibrillation were observed. Previous [id number] score of 2. Not on oral AC [employer]. EKG completed this morning with evidence of atrial fibrillation with RVR, HR in the low 100s. (+) associated dizziness, nausea. Will give increased dose of metoprolol succinate 50mg now and monitor response >> tentatively continue this dose moving forward tomorrow AM. vehicle monitor technician ordered. HS troponin x [address] negative. Prior exercise TTE, January 2023: EF 55-59%, mildly increase LV wall thickness, grade I DD, no significant valvular disease. Negative nuclear stress testing in April 2023. Repeat TTE pending once HR better controlled. Feel sx are 2/2 above. Will check orthostatics for completeness. On ASA 81mg BID for DVT prophylaxis s/p surgery as ordered by ortho. Will hold off on any additional AC initiation for now given postoperative status >> likely defer to cards as an OP for further consideration, will d/w attending. Feel we can hold off on IP cards consult for now. If rate not being controlled with above measures, will then reconsider. PRN antiemetics for nausea. (3) Status post left hip replacement: POD#3 s/p L ADRIANNA performed by Dr. Jose. Appreciate ortho recs >> WBAT, no hip precautions. PRN analgesia. DVT prophylaxis with ASA 81mg BID. Ortho office f/u in 2wk for progress check and staple/suture removal. (4) Acute blood loss anemia: ISO postoperative status, expected surgical blood loss. Likely dilutional component contributing as well. No indication to transfuse at this time, continue to monitor. (5) DMII (diabetes mellitus, type 2): SSI regimen while IP, can resume metformin on DC. Hgb A1c 6.3% 2wk ago per OP records. Monitor BSG checks ACHS. DVT Prophylaxis: ASA as per ortho, SCDs/TEDs Code Status: FULL CODE PCP: Moustapha Wall MD Disposition: DC planning as per ortho, would advise another day of monitoring on telemetry given above medication adjustments to see if sx improve. Tentative plan to return home with [facility], which has already been set up. Appreciate PT/OT reeval today. Thank you for this consultation. We will follow the patient with you during their hospital stay. You can reach a member of the [facility] Hospitalist Team 06/04 via [employer]. Patient seen in collaboration with Dr. Dominguez Please see addendum. I spent a total of 65 minutes coordinating, documenting, and providing care for this patient excluding time spent in the performance of separately billed services or time spent by another provider/QHP. This included personally reviewing all current laboratories and imaging studies, medical reconciliation, outpatient chart review and discussion with specialists. This chart was completed in part utilizing Speech Voice Recognition Software. Grammatical errors, random word insertions, pronoun errors, and incomplete sentences are an occasional consequence of this system due to software limitations, ambient noise, and hardware issues. Any formal questions or concerns about the content, text, or information contained within the body of this dictation should be directly addressed to the provider for clarification. History of Present Illness Reason for Consultation: Persistent dizziness s/p L ADRIANNA Requesting Physician: Jeison Jose DO Attending Physician: Jeison Jose DO History of Present Illness Patient is a 65-year-old male with past medical history significant for type 2 diabetes mellitus, dyslipidemia, paroxysmal atrial fibrillation and obesity who is being seen in consultation for evaluation of persistent dizziness s/p left ADRIANNA performed on 07/28/[address] Jose. Patient endorses feeling rather dizzy and intermittently nauseous since POD#2. Dizziness both at rest and with ambulation. No reported visual changes. Had bout of vomiting yesterday. Poor p.o. intake over the last 2 days, was unable to eat dinner last evening or breakfast this morning. Tolerating some sips of fluid. Denies any abdominal pain. Had elevated heart rate into the low 100s this morning with associated palpitations. EKG was completed and revealed atrial fibrillation with RVR. Known history of paroxysmal atrial fibrillation. Follows with [facility] cardiology, Dr. Catherine. Has been asymptomatic in the past with normal EKGs. Previous [id number]- VASc score of 2 indicating 2-3% annual stroke risk, not on oral AC [employer]. Had outpatient heart monitoring x 1 week completed prior to surgery. No sustained arrhythmias or atrial fibrillation were observed. There were occasional ventricular ectopy; patient was advised to continue his metoprolol succinate 25 mg daily and to start a magnesium supplement. Heart rate did initially improve to the mid 80s without intervention but then fluctuated back up into the low 100s this morning at the time of my evaluation shortly after 8 AM. No reported chest pain or SOB. Still with persistent dizziness. No vomiting this morning but still feeling quite nauseous. Allergies Allergy/AdvReac Type Severity Reaction Status Date / Time No Known Allergies Allergy Verified 07/28/25 06:00 Home Medications Medication Instructions Recorded Confirmed Type metoprolol succinate 25 mg 25 mg PO QAM 05/29/24 07/28/25 History tablet,extended release 24 hr naproxen 250 mg tablet 250 mg PO BID PRN Pain 09/15/24 07/28/25 History polyethylene glycol 3350 17 17 g PO DAILY PRN Constipation 09/15/24 07/28/25 History gram/dose oral powder (Miralax) psyllium husk 0.4 gram capsule 0.4 g PO HS PRN Constipation 09/15/24 07/28/25 History (Metamucil) acetaminophen 500 mg tablet 1,000 mg PO Q6H PRN Pain 06/22/25 07/28/25 History amoxicillin 500 mg capsule 500 mg PO UD PRN dental procedures 06/22/25 07/28/25 History metformin 500 mg tablet,extended 1,000 mg PO QAM 06/22/25 07/28/25 History release 24 hr aspirin 81 mg tablet,delayed 81 mg PO BID 42 days #84 tabs 07/28/25 Rx release cefadroxil 500 mg capsule 500 mg PO BID 10 days #20 caps 07/28/25 Rx hydrocodone 5 mg-acetaminophen 325 1 tab PO BID PRN Pain 07/28/25 07/28/25 History mg tablet magnesium 200 mg tablet 400 mg PO DAILY 07/28/25 07/28/25 History oxycodone 5 mg tablet 5 mg PO Q4H PRN pain #18 tabs 07/28/25 Rx Patient History Medical History Osteoarthritis of left hip Hearing loss chronic Obesity Osteoarthritis Diabetes NIDDM Paroxysmal atrial fibrillation Follows with [facility] cardio History of COVID-19 2019- hospitalized ([facility]), given monoclonal antibodies 05/29/2024- no hospitalization, lingering fatigue and brain fog Surgical History Status post right hip replacement (10/2024) History of postoperative nausea and vomiting after hernia repair ~2004 Hx of colonoscopy age 61 Hx of oral surgery History of placement of ear tubes as child Hx of hernia repair (2004) Social History Smoking Status: Former smoker Smoking End Date: 11-12 years ago; Second Hand Exposure: No; Do You Dip or Chew Tobacco: No; Tobacco Cessation Education Requested by Patient: No Hx Alcohol Use: Yes Alcohol type: hard liquor Hx Substance Use: No Preferred Language: Maltese Communication Ability: Effective Correction Lieutenant Required: No Beliefs That Will Affect Care: None Current Living Situation: Spouse Other Information That Helps Us Care for You: No Feels Safe at Home: Yes Safety Concerns: Feels Safe At This Time Assistive Devices: Raised Toilet Seat and Walker Review of Systems Review of Systems: At least ten systems reviewed and negative, except as noted in the HPI. Physical Exam Physical Exam: General: M, laying down in bed. Appears generally uncomfortable but NAD. A&Ox3, [place]. Conversing appropriately. HEENT: Normocephalic, atraumatic. Oropharynx slightly dry. Respiratory: Normal respiratory effort, CTAB. Saturating well on RA. Cardiovascular: Irregularly irregular rhythm, tachycardic (HR 105bpm). No BLE edema. Abdomen/GI: Active bowel sounds, soft, nontender to palpation in all quadrants. Extremities/Musculoskeletal: No cyanosis or clubbing. L hip surgical dressing C/D/I, not removed for exam. TTP of proximal L thigh and hip region. BLE sensation intact. Neurologic: No overt focal deficits, CN's II-XI not formally tested but appear grossly intact bilaterally. Results & Data Results & Data Vital Signs (Past 12 Hours) Vital Signs Temp Pulse Resp BP BP Pulse Ox O2 Del Method 07/31/25 07:53 37.0 C 102 H 16 120/76 96 Room Air 07/31/25 06:40 37 C 85 16 134/90 97 Room Air 07/31/25 06:07 108 H 150/79 H 97 Room Air 07/30/25 23:20 37.1 C 79 16 120/69 96 Room Air Laboratory Results Short CBC 07/31/25 Range/Units 08:21 WBC 10.90 H (4.8-10.8) K/ul Hgb 11.4 L (14.0-18.0) g/dL Hct 33.0 L (42.0-52.0) % Plt Count 154 (130-400) K/uL BMP 07/31/25 08:21 Sodium 138 Potassium 3.9 Chloride 101 Carbon Dioxide 28 BUN 14 Creatinine 0.84 Glucose 163 H Calcium 9.0
[2025-07-31] MEDS: METOPROLOL SUCC 50MG EXT REL TAB PO STA (08:16)
[2025-07-31] MEDS: ONDANSETRON INJ 2 MG/ML 2 ML VIAL IV STA (08:18)
--- NOTE | 2025-07-31 08:20 | Orthopedic Progress Note ---
Date of Service July 31, 2025 Assessment & Plan (1) Status post left hip replacement: (2) Atrial fibrillation with RVR: Plan * Continue Current Treatment * Disposition: TBD * EKG demonstrates Afib with RVR. Appreciate hospital medicine evaluation and management guidance * Daily treatment: Physical Therapy/ Occupational Therapy per protocol * Weight bearing status: WBAT, no hip precautions * Continue to monitor for ABLA * Pain control * DVT prophylaxis, ASA * Office/hospital f/u 2 weeks for progress check and staple/suture removal * Plan for discharge pending hospital medicine and PT/OT clearance Subjective Active Problems: S/p left ADRIANNA POD 3 65 y/o male s/p left ADRIANNA. Persistent dizziness over the weekend, EKG obtained this morning demonstrates Afib with RVR. Otherwise, has been progressing with PT over the weekend as able given confounding symptoms. Denies fever/chills, chest pain/SOB, nausea/vomiting. Review of Systems All systems reviewed & are unremarkable except as noted in HPI & below. Physical Exam . * General: Alert and oriented, no acute distress * Constitutional: well-developed, well-nourished. * Respiratory: Normal respiratory effort, no distress * Gastrointestinal: No tenderness to palpation, no rigidity or guarding. * Skin: No rash or lesion. * Neurologic: Grossly normal * Musculoskeletal: Left hip surgical dressing CDI, not removed for exam. Otherwise no obvious deformity or overlying skin changes. Diffuse TTP proximal thigh and hip region. Otherwise no specific tenderness of distal thigh, lower leg, foot/ankle. AROM hip flexion intact. AROM foot/ankle intact. Sensation intact plantar/dorsal foot. Brisk capillary refill. Results & Data Results & Data Laboratory Results . Diagnostic Findings . PG Care Time/CCT Total # of Minutes Spent Total Time Spent with Patient: Total time spent is greater than 50% in coordination of care (as documented) at patient's floor/unit and/or counseling patient: Coding Level of Care Code 26904 Post Operative Follow-Up Diagnoses Status post left hip replacement Z96.642 Atrial fibrillation with RVR I48.91
[2025-07-31 08:36] LABS: Hematocrit (blood only) 33.0 % (42.0-52.0); Hemoglobin 11.4 g/dL (14.0-18.0); Mean Corpuscular Hemoglobin 32.2 pg (25.0-34.0); Mean Corpuscular Volume 93.2 fL (80.0-100.0); Platelet Count 154 K/uL (130-400); RDW Standard Deviation 48.1 fL (36.4-46.3); Red Blood Count 3.54 M/uL (4.70-6.10); White Blood Count 10.90 K/ul (4.8-10.8)
[2025-07-31 08:54] LABS: Anion Gap 9.0 (3-11); Calcium 9.0 mg/dl (8.6-10.3); Carbon Dioxide 28.0 mmol/L (21-32); Chloride 101.0 mmol/L (98-107); Potassium 3.9 mmol/L (3.5-5.1); Sodium 138.0 mmol/L (136-145)
[2025-07-31 09:00] LABS: Blood Urea Nitrogen 14.0 mg/dl (6-23); Creatinine Clr Calc Pharmacy 115.7 ml/min; Glucose 163.0 mg/dl (70-99(Fasting))
--- NOTE | 2025-07-31 09:00 | CT Scan Report ---
CT head/brain wo con CLINICAL HISTORY: Persistent dizziness. TECHNIQUE: Multiple axial CT images of the head were obtained without contrast. A dose lowering tech nique was utilized adhering to the principles of ALARA. CT DOSE: 781.86 mGy.cm COMPARISON: None FINDINGS: No intracranial hemorrhage seen. No mass effect, midline shift, or hydrocephalus. There is mild mucosal thickening in the maxillary sinuses. Otherwise the visualized paranasal sinuses are ruddy r. There are a few opacified left mastoid air cells. No skull fracture seen. IMPRESSION: No acute findings. ACT 112: Negative or not required by law. The above report was generated using voice recognition software. It may contain grammatical, syntax o r spelling errors. Electronically signed by: Doug Powers M.D. 07/31/2025 8:58 AM
[2025-07-31] MEDS: INSULIN ASPART PER UNIT CHARGE SC SCH (09:02)
--- NOTE | 2025-07-31 10:48 | Pharmacy Report ---
Pharmacy Glycemic Sign Off Nt - Date of Service July 31, 2025 - Assessment & Plan ASSESSMENT: * Pharmacy was consulted by Serjio Conklin PA-C on 07/28/25 for glycemic control and to write orders per [facility] inpatient glycemic control protocol. * Major changes made by pharmacy to antidiabetic regimen include: * Adjustment of insulin and addition of metformin (home med) * Patient has been refusing insulin and has reasonable HbA1c with metformin monotherapy at home * BSGs not obtained yesterday, but 151 mg/dL this morning * Once daily blood sugar order placed qAM to assess ongoing appropriateness of metformin * Do not anticipate further changes in patient status that would quickly deteriorate glycemic control (i.e. patient to be NPO for upcoming procedure, steroids tapering, starting tube feedings, etc). PLAN FOR INPATIENT GLYCEMIC CONTROL: No changes needed to current regimen. * Metformin 1000 mg PO qAM * Hold insulin at this time, as patient is refusing and not necessarily requiring * Pharmacy is signing off of glycemic consult and will no longer be making adjustments to inpatient regimen. Please feel free to re-consult if needed. Thank you.
--- NOTE | 2025-07-31 11:51 | Cardiology Consultation ---
Date of Consultation July 31, 2025 Assessment & Plan (1) Atrial fibrillation with RVR: (2) Status post left hip replacement: Plan Assessment: 65 year old male with history of Paroxysmal Atrial fibrillation that developed sudden onset palpitations and dizziness, found to be in A-fib with RVR. He is 3 days s/p Left Total hip arthroplasty. patient was administered Toprol xl 50mg x1 dose and cardiology was consulted for further evaluation/management. Plan: 1. Atrial fibrillation with RVR 2. S/P Left hip replacement -Patient with prior history of Paroxysmal atrial fibrillation, low burden. Recent ZIO monitor from Jun 2025 shows no A-fib -Event likely precipitated in low volume status s/p ADRIANNA complicated by post op nausea/vomiting and constipation in addition to post operative pain. -Review of telemetry shows A-fib with rates 113bpm. patient is aware of his events and noted onset to be this morning. -Not currently on Anticoagulation therapy with a [id number] score of 2. Discussed pathophysiology of A-fib with patient and risk for a thromboembolic event combined with recent hip replacement and decreased mobility. Patient is agreeable to start anticoagulation therapy. -Orthopedic team was contacted to confirm that they are ok with us start AC therapy in the setting of recent surgery. They are in agreement for us to proceed. -Echocardiogram shows preserved LVEF and no significant valvular disease -Patient had recent nuclear stress test which is negative for inducible ischemia. -patient is highly symptomatic with A-fib events. Discussed rate control vs rhythm control in conjunction with Anticoagulation. Case was discussed with Dr. Gonzalez. -Patient will start Eliquis 5mg PO BID, first dose now. Please have case management assess cost affordability -Continue Toprol xl 50mg Daily--will adjust dosing pending HR and BP response -Start Flecainide 50mg PO BID, first dose tonight. -Repeat EKG in AM to assess rhythm and QT interval. -Continue with cautious use of anti-emetics in the setting of antiarrhythmic therapy to avoid QT prolongation. Case has been discussed with Dr. Gonzalez. Further recommendations regarding plan of care as per his assessment. I spent a total of 50 minutes on the date of service in preparation, delivery, documentation of the care provided to the patient excluding any time spent in the performance of separately billed services. MAYE Salazar [facility] Cardiology [facility] Supervising Physician Co-Signing Physician Notes Patient seen and examined. Past medical history, surgical history, social history and family history have been reviewed. The medical record and all the above studies have been reviewed. Case DW KATHIA including management. Post-op Atrial Fib with RVR with h/o remote PAF and no recent evidence of AFIB on ZIO S/P Left THR DM HLD Echo - reviewed - LVEF - 55-60%, no WMA, mild AI, mild TR AFib with RVR and BP in the 110s to 120s with adequate maintaining rate a challenge especially after hip sx and need for PT Patient also has had no evidence of atrial fib in the recent past on ZIO and has not had any symptoms suggestive of AFib until current in-hospital episode of AFib Therefore, rhythm control vs rate control were DW patient Risk for thromboembolic event(s) were DW patient Patient had apparently refused AC as OP. However, agrees to start AC- Eliquis. start anticoagulation (Eliquis) Continue metoprolol Start Flecainide avoid hypovolemia keep patient euvolemic correct and f/u electrolytes f/u renal function History of Present Illness Reason for Consultation: A-fib with RVR in the setting of known Paroxysmal A-fib Requesting Physician: Nadeem Hospitalist Attending Physician: Jeison Jose DO History of Present Illness HPI: Patient is a 65 year old male with PMHx as outlined below that was admitted for elective Left hip replacement with Dr. Jeison Jose which took place on 07/28/2025. Patient had reported feelings of palpitations and lightheadedness this morning. EKG obtained showing A-fib with RVR rate 106bpm. Patient was administered Metoprolol succinate 50mg (current home regimen was 25mg QD). Car diology was asked to see him with regards to treatment options. Patient is resting in bed at time of visit, working on lunch. He has had some issues with postoperative nausea and constipation and feels like this is the first meal he's been able to tolerate. Denies chest pain, or pressure, but does endorse palpitations and knows that he is in Atrial fibrillation. Denies shortness of breath, PND, pre-syncope or syncope at time of visit, but overall just feels poorly post op. He is not currently on anticoagulation, but is on ASA 81mg PO BID post op. Review of telemetry shows A-fib. Rate 113bpm. He was not on telemetry overnight so data is limited. H/H stable, no active bleeding concerns. Cardiac Problem List: 1. Paroxysmal atrial fibrillation, diagnosed in 1994, [id number] score of 2 2. Type 2 diabetes mellitus 3. COVID pneumonia 07/21/2020 4. Dyslipidemia last seen in our outpatient clinic by Dr. Catherine 06/07/45 Allergies Allergy/AdvReac Type Severity Reaction Status Date / Time No Known Allergies Allergy Verified 07/28/25 06:00 Home Medications Medication Instructions Recorded Confirmed Type metoprolol succinate 25 mg 25 mg PO QAM 05/29/24 07/28/25 History tablet,extended release 24 hr naproxen 250 mg tablet 250 mg PO BID PRN Pain 09/15/24 07/28/25 History polyethylene glycol 3350 17 17 g PO DAILY PRN Constipation 09/15/24 07/28/25 History gram/dose oral powder (Miralax) psyllium husk 0.4 gram capsule 0.4 g PO HS PRN Constipation 09/15/24 07/28/25 History (Metamucil) acetaminophen 500 mg tablet 1,000 mg PO Q6H PRN Pain 06/22/25 07/28/25 History amoxicillin 500 mg capsule 500 mg PO UD PRN dental procedures 06/22/25 07/28/25 History metformin 500 mg tablet,extended 1,000 mg PO QAM 06/22/25 07/28/25 History release 24 hr aspirin 81 mg tablet,delayed 81 mg PO BID 42 days #84 tabs 07/28/25 Rx release cefadroxil 500 mg capsule 500 mg PO BID 10 days #20 caps 07/28/25 Rx hydrocodone 5 mg-acetaminophen 325 1 tab PO BID PRN Pain 07/28/25 07/28/25 History mg tablet magnesium 200 mg tablet 400 mg PO DAILY 07/28/25 07/28/25 History oxycodone 5 mg tablet 5 mg PO Q4H PRN pain #18 tabs 07/28/25 Rx Patient History Medical History Osteoarthritis of left hip Hearing loss chronic Obesity Osteoarthritis Diabetes NIDDM Paroxysmal atrial fibrillation Follows with S cardio History of COVID-19 2019- hospitalized ([facility]), given monoclonal antibodies 05/29/2024- no hospitalization, lingering fatigue and brain fog Surgical History Status post right hip replacement (10/2024) History of postoperative nausea and vomiting after hernia repair ~2004 Hx of colonoscopy age 61 Hx of oral surgery History of placement of ear tubes as child Hx of hernia repair (2004) Social History Smoking Status: Former smoker Smoking End Date: 11-12 years ago; Second Hand Exposure: No; Do You Dip or Chew Tobacco: No; Tobacco Cessation Education Requested by Patient: No Hx Alcohol Use: Yes Alcohol type: hard liquor Hx Substance Use: No Preferred Language: Lithuanian Communication Ability: Effective Blower Feeder Dyed Raw Stock Required: No Beliefs That Will Affect Care: None Current Living Situation: Spouse Other Information That Helps Us Care for You: No Feels Safe at Home: Yes Safety Concerns: Feels Safe At This Time Assistive Devices: Raised Toilet Seat and Walker Review of Systems Review of Systems: All systems reviewed & are unremarkable except as noted in HPI & below Physical Exam Constitutional: well developed and well nourished Neck: normal visual inspection and trachea midline Respiratory: normal respiratory effort, lungs clear to auscultation Cardiovascular: Rate/Rhythm: + tachycardic and + irregularly irregular Heart Sounds: normal S1 and normal S2; no murmur Vessels: dorsalis pedis pulses present; no JVD Extremities: no edema Skin: no rashes, warm and dry Right ADRIANNA dressing in place Psychiatric: A+Ox3, euthymic affect Results & Data Vital Signs (Past 12 Hours) Vital Signs Temp Pulse Resp BP BP Pulse Ox O2 Del Method 07/31/25 07:53 37.0 C 102 H 16 120/76 96 Room Air 07/31/25 06:40 37 C 85 16 134/90 97 Room Air 07/31/25 06:07 108 H 150/79 H 97 Room Air Laboratory Results Cardiac Enzymes 07/31/25 Range/Units 08:21 Troponin I High Sens 3.4 (0-20) pg/ml CBC 07/31/25 Range/Units 08:21 WBC 10.90 H (4.8-10.8) K/ul RBC 3.54 L (4.70-6.10) M/uL Hgb 11.4 L (14.0-18.0) g/dL Hct 33.0 L (42.0-52.0) % Plt Count 154 (130-400) K/uL Comprehensive Metabolic Panel 07/31/25 Range/Units 08:21 Sodium 138 (136-145) mmol/L Potassium 3.9 (3.5-5.1) mmol/L Chloride 101 (98-107) mmol/L Carbon Dioxide 28 (21-32) mmol/L BUN 14 (6-23) mg/dl Creatinine 0.84 (0.6-1.4) mg/dl Glucose 163 H (70-99(Fasting)) mg/dl Calcium 9.0 (8.6-10.3) mg/dl Intake and Output 07/30/25 07/31/25 07/31/25 22:59 06:59 14:59 Intake Total 240 / 240 Output Total 400 / 2200 900 / 2200 Balance -160 / -1960 -900 / -1959 Intake: Oral 240 / 240 Output: Urine 400 / 2200 900 / 2200 Other: # Unmeasured Voids 1 PG Care Time/CCT Total # of Minutes Spent Total Time Spent with Patient: Total time spent is greater than 50% in coordination of care (as documented) at patient's floor/unit and/or counseling patient: [place] [address] IN/OBS CONSULT LVL 5,80M Patient Type New Diagnoses Atrial fibrillation with RVR I48.91 Status post left hip replacement Z96.642 Time Spent (min) 50
--- NOTE | 2025-07-31 12:07 | XCELERA ---
[id number] [id number]
[2025-07-31 12:29] VITALS: RESP 18
[2025-07-31] MEDS: APIXABAN 5 MG TABLET PO SCH (13:27)
[2025-07-31] MEDS: FLECAINIDE ACETATE 100 MG TABLET PO SCH (22:34)
[2025-08-01 06:38] LABS: Hematocrit (blood only) 33.2 % (42.0-52.0); Hemoglobin 10.9 g/dL (14.0-18.0); Mean Corpuscular Hemoglobin 31.3 pg (25.0-34.0); Mean Corpuscular Volume 95.4 fL (80.0-100.0); Platelet Count 170 K/uL (130-400); RDW Standard Deviation 49.4 fL (36.4-46.3); Red Blood Count 3.48 M/uL (4.70-6.10); White Blood Count 9.13 K/ul (4.8-10.8)
[2025-08-01 07:26] VITALS: TEMP 98.6; O2SAT 97
[2025-08-01 07:29] LABS: Anion Gap 8.0 (3-11); Blood Urea Nitrogen 15.0 mg/dl (6-23); Calcium 9.2 mg/dl (8.6-10.3); Carbon Dioxide 30.0 mmol/L (21-32); Chloride 100.0 mmol/L (98-107); Creatinine Clr Calc Pharmacy 110.6 ml/min; Potassium 4.0 mmol/L (3.5-5.1); Sodium 138.0 mmol/L (136-145)
[2025-08-01 07:35] LABS: Glucose 145.0 mg/dl (70-99(Fasting))
--- NOTE | 2025-08-01 09:04 | Orthopedic Progress Note ---
Date of Service August 01, 2025 Assessment & Plan (1) Status post left hip replacement: (2) Atrial fibrillation with RVR: Plan * Continue Current Treatment * Disposition: TBD * EKG demonstrates Afib with RVR. Appreciate hospital medicine/cardiology evaluation and management guidance * Daily treatment: Physical Therapy/ Occupational Therapy per protocol * Weight bearing status: WBAT, no hip precautions * Continue to monitor for ABLA * Pain control * DVT prophylaxis, start Eliquis per Cardiology recommendations, ok from ortho standpoint * Office/hospital f/u 2 weeks for progress check and staple/suture removal * Plan for discharge pending medical and PT/OT clearance Subjective Active Problems: S/p left ADRIANNA POD 3 65 y/o male s/p left ADRIANNA. Persistent dizziness over the weekend, EKG demonstrates Afib with RVR, appreciate hospital medicine and cardiology recommendations. Otherwise, has been progressing with PT over the weekend as able given confounding symptoms. Denies fever/chills, chest pain/SOB, nausea/vomiting. Overall feels much better today and is looking forward to discharge Review of Systems All systems reviewed & are unremarkable except as noted in HPI & below. Physical Exam * Musculoskeletal: Left hip surgical dressing CDI, not removed for exam. Otherwise no obvious deformity or overlying skin changes. Diffuse TTP proximal thigh and hip region. Otherwise no specific tenderness of distal thigh, lower leg, foot/ankle. AROM hip flexion intact. AROM foot/ankle intact. Sensation intact plantar/dorsal foot. Brisk capillary refill. Results & Data Results & Data Laboratory Results . Diagnostic Findings . PG Care Time/CCT Total # of Minutes Spent Total Time Spent with Patient: Total time spent is greater than 50% in coordination of care (as documented) at patient's floor/unit and/or counseling patient: Coding Level of Care Code 68135 Post Operative Follow-Up Diagnoses Status post left hip replacement Z96.642 Atrial fibrillation with RVR I48.91
--- NOTE | 2025-08-01 09:44 | Hospitalist Progress Note ---
<Statement entered by Andrés Dominguez, DO - 08/01/25 12:47> I have seen and examined the patient and have discussed the case with the advance practice provider. I have reviewed the advanced practitioner's documentation, and I agree with, and take responsibility for that plan of care. Patient states that his lightheadedness and dizziness completely resolved with resolution of his atrial fibrillation. Reviewed cardiology recommendations Vital signs stable Reviewed plans for discharge per attending. Medically stabilized for plan discharge Discharge plans and follow-up as outlined below I spent a total of 15 minutes coordinating, documenting, and providing care for this patient excluding time spent by another provider/QHP. Date of Service August 01, 2025 Assessment & Plan (1) Dizziness: (2) Atrial fibrillation with RVR: Plan: Patient is a 65-year-old male with past medical history significant for type 2 diabetes mellitus, dyslipidemia, paroxysmal atrial fibrillation and obesity who was initially seen in consultation yesterday for evaluation of persistent dizziness and nausea s/p L ADRIANNA performed on 07/28/[address] Jose and was ultimately found to be in A-fib with RVR. Known history of paroxysmal atrial fibrillation. Follows with [facility], Dr. Catherine. OP heart monitor x 1wk completed prior to surgery: no sustained arrhythmias or atrial fibrillation were observed. Negative nuclear stress testing in April 2023. Previous [id number] score of 2. 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 Event likely precipitated by low postop volume status c/b postop N/V, constipation and postop pain. TTE completed with preserved LVEF and no evidence of any significant valvular disease. Was seen and evaluated by cardiology with following recs: start Eliquis 5mg BID, increase Toprol-XL dose to 50mg daily, start Flecainide 50mg BID. Converted to NSR last evening. NSR on repeat EKG this morning. Stable from cardiac standpoint for discharge. Cardiology f/u to be arranged (d/w our ladies suit operator, Annamaria). (3) Status post left hip replacement: Plan: POD#4 s/p L ADRIANNA performed by Dr. Jose. Appreciate ortho recs >> WBAT, no hip precautions. PRN analgesia. DVT prophylaxis with ASA 81mg BID. Ortho office f/u in 2wk for progress check and staple/suture removal. (4) Acute blood loss anemia: Plan: ISO postoperative status, expected surgical blood loss. Likely dilutional component contributing as well. Not requiring transfusion. (5) DMII (diabetes mellitus, type 2): Plan: SSI regimen while IP, can resume metformin on DC. Hgb A1c 6.3% 2wk ago per OP records. Monitor BSG checks ACHS. DVT Prophylaxis: ASA as per ortho, SCDs/TEDs Code Status: FULL CODE PCP: Moustapha Wall MD Disposition: Stable for discharge from our perspective as well as cardiology. PCP and cardiology f/u to be arranged (again - d/w our ladies suit operator, Annamaria to assist with this). You can reach a [facility] via [employer]. Patient seen in collaboration with Dr. Dominguez. Please see addendum. I spent a total of 46 minutes coordinating, documenting, and providing care for this patient excluding time spent in the performance of separately billed services or time spent by another provider/QHP. This included personally reviewing all current laboratories and imaging studies, medical reconciliation, outpatient chart review and discussion with specialists. This chart was completed in part utilizing Speech Voice Recognition Software. Grammatical errors, random word insertions, pronoun errors, and incomplete sentences are an occasional consequence of this system due to software limitations, ambient noise, and hardware issues. Any formal questions or concerns about the content, text, or information contained within the body of this dictation should be directly addressed to the provider for clarification. Admission and Anticipated Discharge Date Admission Date: July 31, 2025 Subjective Patient seen and examined in room W262-1. Feeling much improved this morning, nausea and dizziness have resolved. Converted to NSR last evening, rate- controlled. Started on Eliquis by cardiology as well as flecainide, appears to be tolerating both of these medication changes without issue. Review of Systems Review of Systems: At least ten systems reviewed and negative, except as noted in the subjective section. Physical Exam Physical Exam: General: M, sitting up in bed. A&Ox3, well-appearing. Conversing appropriately. HEENT: Normocephalic, atraumatic. Moist mucous membranes. Respiratory: Normal respiratory effort, CTAB. Saturating well on RA. Cardiovascular: RRR, no BLE edema or obvious murmurs. Abdomen/GI: Active bowel sounds, soft, nontender to palpation in all quadrants. Extremities/Musculoskeletal: No cyanosis or clubbing. L hip surgical dressing C/D/I, not removed for exam. Mild TTP of proximal L thigh and hip region. BLE sensation intact. Neurologic: No overt focal deficits, CN's II-XI not formally tested but appear grossly intact bilaterally. Results & Data Results & Data Vital Signs (Past 12 Hours) Vital Signs Temp Pulse Pulse Pulse Resp BP BP 08/01/25 07:26 37.0 C 66 18 117/66 08/01/25 04:00 36.7 C 71 18 110/66 07/31/25 23:20 36.6 C 75 18 103/65 07/31/25 22:00 70 Pulse Ox O2 Del Method 08/01/25 07:26 97 Room Air 08/01/25 04:00 95 Room Air 07/31/25 23:20 96 Room Air 07/31/25 22:00 Laboratory Results Short CBC 08/01/25 Range/Units 06:12 WBC 9.13 (4.8-10.8) K/ul Hgb 10.9 L (14.0-18.0) g/dL Hct 33.2 L (42.0-52.0) % Plt Count 170 (130-400) K/uL BMP 08/01/25 06:12 Sodium 138 Potassium 4.0 Chloride 100 Carbon Dioxide 30 BUN 15 Creatinine 0.91 Glucose 145 H Calcium 9.2
--- NOTE | 2025-08-01 10:07 | Cardiology Progress Note ---
Date of Service August 01, 2025 Assessment & Plan (1) Atrial fibrillation with RVR: (2) Status post left hip replacement: Plan Assessment: 65 year old male with history of Paroxysmal Atrial fibrillation that developed sudden onset palpitations and dizziness, found to be in A-fib with RVR. He is 3 days s/p Left Total hip arthroplasty. patient was administered Toprol xl 50mg x1 dose and cardiology was consulted for further evaluation/management. Post-op Atrial Fib with RVR with h/o remote PAF and no recent evidence of AFIB on ZIO S/P Left THR DM HLD Patient converted to sinus rhythm Echo - reviewed - LVEF - 55-60%, no WMA, mild AI, mild TR AFib with RVR and BP in the 110s to 120s with adequate maintaining rate a challenge especially after hip sx and need for PT Patient also has had no evidence of atrial fib in the recent past on ZIO and has not had any symptoms suggestive of AFib until current in-hospital episode of AFib Therefore, rhythm control vs rate control were DW patient Risk for thromboembolic event(s) were DW patient Patient had apparently refused AC as OP. However, agreed to start AC- Eliquis. continue anticoagulation (Eliquis) Continue metoprolol continue Flecainide avoid hypovolemia keep patient euvolemic correct and f/u electrolytes f/u renal function stable from cardiac standpoint for discharge f/u with cardiology post discharge Admission and Anticipated Discharge Date Admission Date: July 31, 2025 Subjective Patient on exam is lying in bed in NAD; no c/o cp, sob, palpitations, dizziness, LOC; feels better; Tele - sinus rhythm Review of Systems Review of Systems: as per hpi Physical Exam Constitutional: well developed and well nourished Neck: normal visual inspection and trachea midline Respiratory: normal respiratory effort, lungs clear to auscultation Cardiovascular: Heart Sounds: normal S1 and normal S2; no murmur Vessels: dorsalis pedis pulses present; no JVD Extremities: no edema Skin: no rashes, warm and dry Psychiatric: A+Ox3, euthymic affect Results & Data Vital Signs (Past 12 Hours) Vital Signs Vital Signs Temp 37.0 C 08/01/25 07:26 Pulse 66 08/01/25 07:26 Resp 18 08/01/25 07:26 BP 117/66 08/01/25 07:26 Pulse Ox 97 08/01/25 07:26 O2 Del Method Room Air 08/01/25 07:26 O2 Flow Rate 6 07/28/25 08:55 Intake & Output 07/31/25 08/01/25 08/01/25 18:59 06:59 18:59 Intake Total 300 / 300 Output Total 1100 1100 / 1101 Balance 299 / -801 -1100 / -801 Weight 113.4 kg Intake: Oral 300 / 300 Output: Urine 1100 / 1100 # Bowel Movements Other: # Unmeasured Voids 1 Weight Measurement Method Built in [facility] Pulse Pulse Resp BP BP Pulse Ox 08/01/25 07:26 37.0 C 66 18 117/66 97 08/01/25 04:00 36.7 C 71 18 110/66 95 07/31/25 23:20 36.6 C 75 18 103/65 96 O2 Del Method 08/01/25 07:26 Room Air 08/01/25 04:00 Room Air 07/31/25 23:20 Room Air Laboratory Results Laboratory Results WBC 9.13 K/ul (4.8-10.8) 08/01/25 06:12 RBC 3.48 M/uL (4.70-6.10) L 08/01/25 06:12 Hgb 10.9 g/dL (14.0-18.0) L 08/01/25 06:12 Hct 33.2 % (42.0-52.0) L 08/01/25 06:12 MCV 95.4 fL (80.0-100.0) 08/01/25 06:12 MCH 31.3 pg (25.0-34.0) 08/01/25 06:12 MCHC 32.8 g/dL (32.0-36.0) 08/01/25 06:12 RDW Std Deviation 49.4 fL (36.4-46.3) H 08/01/25 06:12 RDW Coeff of Johana 14.1 % (11.5-14.5) 08/01/25 06:12 Plt Count 170 K/uL (130-400) 08/01/25 06:12 MPV 10.8 fL (9.4-12.4) 08/01/25 06:12 Sodium 138 mmol/L (136-145) 08/01/25 06:12 Potassium 4.0 mmol/L (3.5-5.1) 08/01/25 06:12 Chloride 100 mmol/L (98-107) 08/01/25 06:12 Carbon Dioxide 30 mmol/L (21-32) 08/01/25 06:12 Anion Gap 8 (3-11) 08/01/25 06:12 BUN 15 mg/dl (6-23) 08/01/25 06:12 Creatinine 0.91 mg/dl (0.6-1.4) 08/01/25 06:12 Est Cr Clr Drug Dosing 110.6 ml/min 08/01/25 06:12 eGFR 92.95 08/01/25 06:12 BUN/Creatinine Ratio 16.5 (10-20) 08/01/25 06:12 Glucose 145 mg/dl (70-99(Fasting)) H 08/01/25 06:12 POC Glucose 132 mg/dl (70-99) H 08/01/25 07:46 Calcium 9.2 mg/dl (8.6-10.3) 08/01/25 06:12 Troponin I High Sens 3.4 pg/ml (0-20) 07/31/25 08:21 Impressions Hip X-Ray 07/28/25 00:00 FL hip LT 1V CLINICAL HISTORY: LT ANTERIOR HIP COMPARISON STUDY: None FLUOROSCOPY TIME: 16 seconds FLUOROSCOPY IMAGES: 1 EXPOSURE DOSE: 2.6 mGy FINDINGS: Fluoroscopy was provided for left hip prosthesis. IMPRESSION: Intraoperative fluoroscopy. ACT 112: Negative or not required by law. Electronically signed by: Doug Powers M.D. 07/28/2025 3:03 PM Hip/Pelvis X-Ray 07/28/25 07:37 XR hip 1V LT w pelvis CLINICAL HISTORY: IN PACU - Post Surgical COMPARISON: 09/23/2024 FINDINGS: Bilateral hip prostheses show no hardware complication. There is expected soft tissue gas on the left. IMPRESSION: Unremarkable postoperative exam. ACT 112: Negative or not required by law. Electronically signed by: Doug Powers M.D. 07/28/2025 9:[address] 07/31/25 08:07 CT head/brain wo con CLINICAL HISTORY: Persistent dizziness. TECHNIQUE: Multiple axial CT images of the head were obtained without contrast. A dose lowering technique was utilized adhering to the principles of ALARA. CT DOSE: 781.86 mGy.cm COMPARISON: None FINDINGS: No intracranial hemorrhage seen. No mass effect, midline shift, or hydrocephalus. There is mild mucosal thickening in the maxillary sinuses. Otherwise the visualized paranasal sinuses are clear. There are a few opacified left mastoid air cells. No skull fracture seen. IMPRESSION: No acute findings. ACT 112: Negative or not required by law. The above report was generated using voice recognition software. It may contain grammatical, syntax or spelling errors. Electronically signed by: Doug Powers M.D. 07/31/2025 8:58 AM Diagnostic Findings CBC 08/01/25 Range/Units 06:12 WBC 9.13 (4.8-10.8) K/ul RBC 3.48 L (4.70-6.10) M/uL Hgb 10.9 L (14.0-18.0) g/dL Hct 33.2 L (42.0-52.0) % Plt Count 170 (130-400) K/uL Comprehensive Metabolic Panel 08/01/25 Range/Units 06:12 Sodium 138 (136-145) mmol/L Potassium 4.0 (3.5-5.1) mmol/L Chloride 100 (98-107) mmol/L Carbon Dioxide 30 (21-32) mmol/L BUN 15 (6-23) mg/dl Creatinine 0.91 (0.6-1.4) mg/dl Glucose 145 H (70-99(Fasting)) mg/dl Calcium 9.2 (8.6-10.3) mg/dl Intake and Output 07/31/25 08/01/25 08/01/25 22:59 06:59 14:59 Output Total 500 / 1101 600 / 1101 Balance -500 / -801 -600 / -801 Output: Urine 500 / 1100 600 / 1100 Other: Weight 113.4 kg Weight Measurement Method Built in [facility] Medications Administered Home Medications Medication Instructions Recorded Confirmed Last Taken metoprolol succinate 25 mg 25 mg PO QAM 05/29/24 07/28/25 07/28/25 03:45 tablet,extended release 24 hr naproxen 250 mg tablet 250 mg PO BID PRN Pain 09/15/24 07/28/25 07/21/25 polyethylene glycol 3350 17 17 g PO DAILY PRN Constipation 09/15/24 07/28/25 07/25/25 gram/dose oral powder (Miralax) psyllium husk 0.4 gram capsule 0.4 g PO HS PRN Constipation 09/15/24 07/28/25 09/22/24 09:00 (Metamucil) acetaminophen 500 mg tablet 1,000 mg PO Q6H PRN Pain 06/22/25 07/28/25 07/26/25 amoxicillin 500 mg capsule 500 mg PO UD PRN dental procedures 06/22/25 07/28/25 Unknown metformin 500 mg tablet,extended 1,000 mg PO QAM 06/22/25 07/28/25 07/27/25 07:00 release 24 hr aspirin 81 mg tablet,delayed 81 mg PO BID 42 days #84 tabs 07/28/25 Unknown release cefadroxil 500 mg capsule 500 mg PO BID 10 days #20 caps 07/28/25 Unknown hydrocodone 5 mg-acetaminophen 325 1 tab PO BID PRN Pain 07/28/25 07/28/25 07/25/25 mg tablet magnesium 200 mg tablet 400 mg PO DAILY 07/28/25 07/28/25 07/27/25 07:00 oxycodone 5 mg tablet 5 mg PO Q4H PRN pain #18 tabs 07/28/25 Unknown Active Medications Generic Name Dose Route Start Last Admin Trade Name Nancy PRN Reason Stop Dose Admin Acetaminophen 1,000 mg 07/28/25 14:00 08/01/25 05:35 Acetaminophen 500 Mg Tab PO 08/27/25 13:59 Not Given Q8 BRAD Apixaban 5 mg 07/31/25 12:45 08/01/25 09:51 Apixaban 5 Mg Tablet PO 08/30/25 12:44 5 mg BID BRAD Administration Docusate Sodium 100 mg 07/28/25 10:05 08/01/25 09:07 Docusate Sodium 100 Mg Cap PO 08/27/25 10:04 Not Given BID BRAD Flecainide Acetate 50 mg 07/31/25 21:00 08/01/25 09:51 Flecainide Acetate 100 Mg Tablet PO 08/30/25 20:59 50 mg Q12 BRAD Administration Magnesium Hydroxide 30 ml 07/28/25 10:05 07/29/25 21:19 Magnesium Hydroxide Susp 30 Ml Udc PO 08/27/25 10:04 30 ml Q6H PRN Administration Constipation Metformin HCl 1,000 mg 07/29/25 12:30 08/01/25 09:51 Metformin Hcl 500 Mg Tab PO 08/28/25 12:29 1,000 mg QAM BRAD Administration Metoclopramide HCl 10 mg 07/28/25 10:05 07/31/25 02:41 Metoclopramide Hcl Inj 5 Mg/Ml 2 Ml Vial IV 08/27/25 10:04 10 mg Q6H PRN Administration Nausea And Vomiting Multivitamins 1 tab 07/28/25 10:05 08/01/25 09:07 Multivitamin Tab PO 08/27/25 10:04 Not Given QAM BRAD Ondansetron HCl 4 mg 07/28/25 10:05 07/31/25 16:14 Ondansetron Inj 2 Mg/Ml 2 Ml Vial IV 08/27/25 10:04 4 mg Q6H PRN Administration Nausea And Vomiting Sennosides 17.2 mg 07/28/25 21:00 07/31/25 22:33 Senna 8.6 Mg Tab PO 08/27/25 20:59 Not Given HS BRAD Tramadol HCl 50 mg 07/30/25 14:43 08/01/25 02:44 Tramadol Hcl 50 Mg Tablet PO 08/29/25 17:59 50 mg Q6 PRN Administration Pain PG Care Time/CCT Total # of Minutes Spent Total Time Spent with Patient: Total time spent is greater than 50% in coordination of care (as documented) at patient's floor/unit and/or counseling patient: Coding Level of Care Code 56188 SUB INP/OBS CARE 3/50MIN Diagnoses Atrial fibrillation with RVR I48.91 Status post left hip replacement Z96.642
[2025-08-01] MEDS: METOPROLOL SUCC 50MG EXT REL TAB PO SCH (10:13)
--- NOTE | 2025-08-01 11:46 | Communication Note ---
Date of Service: August 01, 2025 Contacted patient's pharmacy to determine cost of Eliquis. Cost of Eliquis with insurance = $513. Patient provided with Eliquis coupon to receive his first month free.
[2025-08-01 12:15] VITALS: BP 110/66; PULSE 71
--- NOTE | 2025-08-02 06:35 | Electrocardiogram Report ---
Test Reason : Blood Pressure : */* mmHG Vent. Rate : 106 BPM Atrial Rate : * BPM P-R Int : * ms QRS Dur : 78 ms QT Int : 346 ms P-R-T Axes : * -3 -53 degrees QTcB Int : 459 ms Atrial fibrillation with rapid ventricular response with premature ventricular or aberrantly conducte d complexes Minimal voltage criteria for LVH, may be normal variant ( R in aVL ) Nonspecific ST and T wave abnormality Abnormal ECG When compared with ECG of 30-Aug-2024 13:34, Atrial fibrillation has replaced Sinus rhythm Confirmed by Edwin Knutson ([id number]) on 08/02/2025 6:34:56 AM Referred By: Jeison Jose Confirmed By: Edwin Knutson
--- NOTE | 2025-08-03 06:42 | Electrocardiogram Report ---
Test Reason : Blood Pressure : */* mmHG Vent. Rate : 67 BPM Atrial Rate : 67 BPM P-R Int : 156 ms QRS Dur : 94 ms QT Int : 392 ms P-R-T Axes : 16 6 -10 degrees QTcB Int : 414 ms Normal sinus rhythm Nonspecific T wave abnormality Abnormal ECG When compared with ECG of 31-Jul-2025 06:36, Sinus rhythm has replaced Atrial fibrillation Vent. rate has decreased by 39 bpm Nonspecific T wave abnormality has replaced inverted T waves in Inferior leads Confirmed by Edwin Knutson ([id number]) on 08/03/2025 6:42:01 AM Referred By: Jeison Jose Confirmed By: Edwin Knutson
== END 2025-08-01 13:49 | disposition home health service (06) | DRG 470 ==
LOC: ASU 05:24 → 3E 05:24 → 2W 07-31 10:45